=== PATIENT | female | born 1965 | race Caucasian/White ===

== ENCOUNTER 2017-03-17 10:31 | Outpatient (CLI) | payer OTHER | END 2017-03-17 10:32 | disposition home or self-care (01) | DX: M25.559 Pain in unspecified hip (principal) ==

== ENCOUNTER 2017-10-04 08:38 | Outpatient (CLI) | payer OTHER ==
[2017-10-04] MEDS ORDERED: BARIUM SULFATE 148 GM POWDER PO ONE (09:52)
[2017-10-04] MEDS ORDERED: BARIUM SULFATE 454 GM TUBE PO ONE (09:52)
--- NOTE | 2017-10-04 10:38 | XRAY Report ---
MODIFIED BARIUM SWALLOW: 10/04/2017 CLINICAL INDICATION: Dysphagia. FINDINGS: Various consistencies of barium were prepared and administered in conjunction with Speech Pathology. There was trace penetration with thin liquids, without trevor aspiration. Other consisten cies were unremarkable. Please also refer to full report from Speech Pathology. IMPRESSION: TRACE PENETRATION WITH THIN LIQUIDS. FLUOROSCOPY TIME: 1 minute, 27 seconds; 1 spot image obtained (cinefluoroscopy recorded). JOB #: [id number] EXT JOB #:[id number]
== END 2017-10-04 08:39 | disposition home or self-care (01) ==
LOC: DI 08:38
PROVIDERS: ATTEND Otolaryngology Otolaryngology/Facial Plastic Surgery
DX: R13.10 Dysphagia, unspecified (principal)
CPT/HCPCS: 74230

== ENCOUNTER 2017-12-19 12:00 | Outpatient (CLI) | payer OTHER ==
--- NOTE | 2017-12-19 14:45 | XRAY Report ---
DATE OF SERVICE: 12/19/2017 TWO VIEW CHEST: 12/19/2017 CLINICAL INDICATION: Wheeze, cough. COMPARISON: 12/24/2015. FINDINGS: Frontal and lateral views of the chest demonstrate a normal cardiac silhouette. The lungs are clear. No effusion or pneumothorax is present. IMPRESSION: NORMAL CHEST. TD: 12/19/2017 14:44
== END 2017-12-19 12:01 | disposition home or self-care (01) ==
LOC: DI 12:00
PROVIDERS: ATTEND Internal Medicine
DX: R06.2 Wheezing (principal); R05 Cough
CPT/HCPCS: 71046

== ENCOUNTER 2018-03-22 19:19 | Outpatient (CLI) | payer OTHER | END 2018-03-22 19:20 | disposition short-term general hospital (02) | LOC: EMS 19:19 | PROVIDERS: ATTEND Surgery | DX: R07.9 Chest pain, unspecified (principal) | CPT/HCPCS: A0170; A0425; A0427 ==

== ENCOUNTER 2018-03-30 09:08 | Outpatient (CLI) | payer OTHER ==
--- NOTE | 2018-03-30 12:45 | Ultrasound Report ---
PELVIC ULTRASOUND: 03/30/2018 CLINICAL INDICATION: Pelvic pain. TECHNIQUE: Transabdominal pelvic ultrasound performed for global evaluation. Transvaginal pelvic ultrasound performed for detailed evaluation. Real-time scanning performed and static images obtained. FINDINGS: The uterus is anteverted, measuring 9.2 x 4.4 x 3.4 cm. The endometrium measures 8 mm. No focal myometrial lesion is seen. Neither ovary was confidently identified on transabdominal or transvaginal imaging. No adnexal mass or free fluid is appreciated. IMPRESSION: NORMAL UTERUS. NONVISUALIZATION OF BOTH OVARIES, BUT NO EVIDENCE OF ADNEXAL MASS OR FREE FLUID. TD: 03/30/2018 12:22
== END 2018-03-30 09:09 | disposition home or self-care (01) ==
LOC: DI 09:08
PROVIDERS: ATTEND Internal Medicine
DX: N95.1 Menopausal and female climacteric states (principal); R10.2 Pelvic and perineal pain
CPT/HCPCS: 76830; 76856

== ENCOUNTER 2018-07-04 12:57 | Outpatient (CLI) | payer OTHER ==
[2018-07-04] MEDS ORDERED: GADOBUTROL 15 MMOL/15 ML VIAL ONE (13:04)
[2018-07-04] MEDS ORDERED: GADOBUTROL 15 MMOL/15 ML VIAL IVP ONE (14:14)
--- NOTE | 2018-07-04 15:46 | MRI Report ---
Procedure Date: 07/04/2018 Accession Number: [id number] / [id number] Procedure: MRI - Angio Brain W/O (MRA) CPT Code: FULL RESULT: EXAM MRA BRAIN EXAM DATE: 07/04/2018 01:38 PM. CLINICAL HISTORY: 52-year-old female, pituitary adenoma, subarachnoid cyst COMPARISON: None. TECHNIQUE: Multiplanar, multisequence MRA sequences of the brain were performed. Other: None. Post-processing: Multiplanar 3D MIP reconstructions. IV Contrast: None. FINDINGS: RIGHT Internal Carotid (ICA): No aneurysm, stenosis or anomaly. Middle Cerebral (MCA): No aneurysm, stenosis or anomaly. Anterior Cerebral (SHUN): No aneurysm, stenosis or anomaly. Posterior Cerebral (WARNING ANALYST): No aneurysm, stenosis or anomaly. Posterior Communicating (P-COM): Only faintly visualized, likely hypoplastic. Vertebral: No aneurysm, stenosis or anomaly in the visualized upper vertebral artery. LEFT Internal Carotid (ICA): No aneurysm, stenosis or anomaly. Middle Cerebral (MCA): No aneurysm, stenosis or anomaly. Anterior Cerebral (SHUN): No aneurysm, stenosis or anomaly. Posterior Cerebral (WARNING ANALYST): No aneurysm, stenosis or anomaly. Posterior Communicating (P-COM): Only faintly visualized, likely hypoplastic. Vertebral: No aneurysm, stenosis or anomaly in the visualized upper vertebral artery. MIDLINE Anterior Communicating (A-COM): No aneurysm, stenosis or anomaly. Basilar Artery:No aneurysm, stenosis or anomaly. Other: None. IMPRESSION: 1. Normal brain MRA. No stenoses, large vessel occlusions, aneurysms, or vascular malformations RADIA
--- NOTE | 2018-07-04 16:02 | MRI Report ---
Procedure Date: 07/04/2018 Accession Number: [id number] / [id number] Procedure: MRI - Brain W/WO CPT Code: FULL RESULT: EXAM: MRI BRAIN AND PITUITARY WITHOUT AND WITH CONTRAST. EXAM DATE: 07/04/2018 02:35 PM. CLINICAL HISTORY: 52-year-old female with history of pituitary adenoma and arachnoid cyst. COMPARISON: None. TECHNIQUE: Multiplanar, multisequence T1-weighted and fluid-sensitive MR sequences of the brain and pituitary were performed. Other: None. IV Contrast: 13.5 mL Gadavist. FINDINGS: Brain Volume: Normal for age. Parenchyma: No masses, infarcts, or hemorrhage. No white matter lesions identified. No abnormal enhancement. No parenchymal foci susceptibility artifact. Pituitary: 3.1 mm craniocaudally x 12 mm AP x 17 mm transversely. Normal. No masses, hemorrhage, or enlargement. The superior margin is concave. The pituitary stalk is normal in thickness. The adjacent parasellar structures are within normal limits. Ventricles/Cisterns: No hydrocephalus. There is a midline CSF intensity collection within the posterior fossa behind the vermis measuring 3.3 x 4.0 x 2.7 cm, favored to represent an arachnoid cyst. Orbits: Symmetric and unremarkable. IAC: Symmetric and unremarkable. Vasculature: Normal signal flow void is seen in the major arterial structures at the skull base. The dural sinuses are patent and enhance normally. Sinuses: No acute sinus disease. Bones: No focal pathologic appearing marrow signal changes. Other: None. IMPRESSION: 1. No MRI evidence of acute intracranial abnormality. Specifically, no evidence of acute or subacute infarct, acute intracranial hemorrhage, parenchymal mass, midline shift, or hydrocephalus. No abnormal enhancement. 2. There is a midline CSF intensity extra-axial collection within the posterior fossa behind the vermis measuring 3.3 x 4.0 x 2.7 cm, favored to represent an arachnoid cyst. 3. As detailed above, the pituitary gland appears unremarkable. No definite focal mass, hemorrhage, or differential enhancement to suggest a residual/recurrent mass RADIA
== END 2018-07-04 12:58 | disposition home or self-care (01) ==
LOC: DI 12:57
PROVIDERS: ATTEND Internal Medicine
DX: D35.2 Benign neoplasm of pituitary gland (principal); G93.0 Cerebral cysts
CPT/HCPCS: 70544; 70553; A9585

== ENCOUNTER 2018-10-12 15:37 | Outpatient (CLI) | payer OTHER ==
--- NOTE | 2018-10-13 08:10 | MRI Report ---
Reason: CERVICALGIA, LOW BACK PAIN, CEREBRAL CYST Procedure Date: 10/12/2018 Accession Number: [id number] / [id number] Procedure: MRI - Cervical Spine W/O CPT Code: FULL RESULT: EXAM: MRI CERVICAL SPINE WITHOUT CONTRAST EXAM DATE: 10/12/2018 03:59 PM. CLINICAL HISTORY: Cervicalgia, low back pain, cerebral cyst. COMPARISONS: None. TECHNIQUE: Multiplanar, multisequence T1-weighted and fluid-sensitive sequences of the cervical spine without contrast. Other: None. FINDINGS: Neurologic Structures: Retrocerebellar midline fluid space widening is present suggestive of an arachnoid cyst. No signal abnormality in the visualized spinal cord. Alignment: Cervical lordosis straightening. No focal subluxation. Minimal broad-based rightward convex asymmetric cervical curve, significance uncertain, potentially positional. Bone Marrow: Minimal degenerative endplate signal changes at C5-C6. Interspace Levels/Facets: C1-C2: Unremarkable. C2-C3: Unremarkable. C3-C4: Minimal to mild right and mild to moderate left-sided facet arthropathy. No disk herniation or central canal stenosis. Patent right foramen. Mild left foraminal stenosis is present from left side facet arthropathy and minimal uncinate process spurring. C4-C5: Unremarkable. C5-C6: Mild to moderate degenerative disk disease. Prominent asymmetric left of midline posterior disk herniation with osteophyte. Ventral thecal sac effacement anteriorly on the left with mild contouring of the ventral cord surface. The disk osteophyte complex creates moderately prominent left lateral recess stenosis and moderate to severe left foraminal stenosis into which it protrudes, correlate to a left C6 radiculopathy. Patent right foramen. The overall degree of central stenosis is mild. C6-C7: Minimal disk bulge. No significant disk space narrowing. No stenosis. C7-T1: Unremarkable. Musculature: Normal. No edema or fatty atrophy. Other: No acute edema or asymmetry. Mild diffuse fatty atrophy may be present. IMPRESSION: The most significant abnormality is a large left of midline disk herniation and osteophyte at C5-C6 associated with potentially significant stenosis of the left lateral recess and left neural foramen, correlate to a left C6 radiculopathy. Minimal mass-effect on the cord anteriorly on the left at C5-C6 but no cord signal abnormality. RADIA
--- NOTE | 2018-10-13 19:29 | MRI Report ---
Reason: CERVICALGIA, LOW BACK PAIN, CEREBRAL CYST Procedure Date: 10/12/2018 Accession Number: [id number] / [id number] Procedure: MRI - Lumbar Spine W/O CPT Code: FULL RESULT: EXAM: MRI LUMBAR SPINE WITHOUT CONTRAST EXAM DATE: 10/12/2018 05:12 PM. CLINICAL HISTORY: Cervicalgia, low back pain, cerebral cyst. COMPARISON: ABDOMEN/PELVIS W/O 06/05/2015 2:02 PM. TECHNIQUE: Multiplanar, multisequence T1-weighted and fluid-sensitive sequences of the lumbar spine from T12 to S1 without contrast. Other: None. FINDINGS: Spinal Canal: The conus terminates at T12. The conus medullaris and cauda equina are unremarkable. Alignment: No scoliosis or spondylolisthesis. Bone Marrow: Five [id number] lumbar vertebral bodies are assumed. No gross fractures or bone lesions. No bone marrow replacement. Disk Levels/Facets: T12-L1: Unremarkable. L1-L2: Unremarkable. L2-L3: Mild disk degeneration. Left lateral 3 mm disk protrusion osteophyte complex with moderate left foraminal stenosis. The right intervertebral foramen is negative for stenosis. L3-L4: Negative for spinal canal stenosis or foraminal stenosis. L4-L5: Mild facet joint arthrosis. Mild left foraminal stenosis from facet hypertrophy. Mild right foraminal stenosis from 2 mm foraminal disk protrusion. L5-S1: Severe left and moderate right facet joint arthrosis. Negative for spinal canal stenosis. Musculature: Low lumbar and sacral paraspinal muscle atrophy. Other: The partially visualized retroperitoneum is unremarkable. IMPRESSION: 1. Negative for spinal canal stenosis or focal disk herniation. 2. Moderate left L2-L3 foraminal stenosis from lateral 3 mm disk protrusion osteophyte complex which contacts the exiting left L2 nerve root. 3. There is severe left and moderate right L5-S1 facet joint arthrosis. Comment: The following findings are so common in adults without low back pain that while we report their presence, they must be interpreted with caution and in the context of the clinical situation. (Reference Shengk et al, Spine 2001) Prevalence of findings in patients without low back pain: Disk degeneration (any evidence): 92% Disk desiccation/T2 signal loss: 83% Disk height loss: 56% Disk bulge: 64% Disk protrusion: 32% Annular tear/high intensity zone: 38% RADIA
== END 2018-10-12 15:38 | disposition home or self-care (01) ==
LOC: DI 15:37
PROVIDERS: ATTEND Internal Medicine
DX: M51.26 Other intervertebral disc displacement, lumbar region (principal); M48.061 Spinal stenosis, lumbar region without neurogenic claudication; M47.817 Spondylosis without myelopathy or radiculopathy, lumbosacral region; M50.122 Cervical disc disorder at C5-C6 level with radiculopathy; M48.02 Spinal stenosis, cervical region; M25.78 Osteophyte, vertebrae
CPT/HCPCS: 72141; 72148

== ENCOUNTER 2020-08-26 10:54 | Emergency (ER) | payer MEDICAID ==
[2020-08-26 11:06] VITALS: BP 145/70
--- NOTE | 2020-08-26 11:56 | ED Physician Documentation ---
History of Present Illness - Stated complaint Stated Complaint: RT ANKLE INJ - Chief complaint Chief Complaint: Ext Problem - Additonal information Additional information: 54-year-old female presents to the emergency department with acute right ankle pain that began 4 days ago. She reports that she was walking and began to feel faint so she leaned forward. When she leaned forward she fell onto her abdomen but her right foot was trapped between her knee and the wall. She reports that she heard a pop and has had pain and swelling laterally since she has difficulty bearing weight on the forefoot but if she everts her foot she can walk nearly normally. She has been typically using a cane or crutch to get around. No history of previous injury. Review of Systems Constitutional: reports: Reviewed and negative Nose: reports: Reviewed and negative Throat: reports: Reviewed and negative Cardiac: denies: Chest pain / pressure, Palpitations, Pedal edema, Calf pain Respiratory: denies: Dyspnea, Cough, Hemoptysis, Wheezing GI: denies: Abdominal Pain, Abdominal Swelling, Nausea, Vomiting, Constipation : denies: Dysuria, Frequency Musculoskeletal: reports: Joint pain (right ankle swelling laterally) Neurologic: reports: Syncope. 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: Miscarriage(s) : None HEENT: None Psych: Depression Musculoskeletal: Chronic back pain - Past Surgical History Past Surgical History: Yes /ASSEMBLER TUBING: Tubal ligation Cardiovascular: Cardiac catheterization - Present Medications Home Medications: Ambulatory Orders Medication Instructions Recorded Confirmed Acetaminophen [Tylenol] 650 mg PO PRN 11/21/15 12/24/15 Albuterol Sulfate 2.5 mg IH PRN 11/21/15 12/24/15 Albuterol Sulfate [Proair Hfa] 8.5 gm IH PRN 11/21/15 12/24/15 Aspirin [P[place]kin Aspirin] 81 mg PO DAILY 11/21/15 12/24/15 Clopidogrel [Plavix] 75 mg PO DAILY 11/21/15 12/24/15 Escitalopram [Lexapro] 20 mg PO DAILY 11/21/15 12/24/15 Famotidine 20 mg PO DAILY 11/21/15 12/24/15 Nicotine 7 mg Patch [Nicoderm] 1 each TOP Q24H 11/21/15 12/24/15 carvediloL [Carvedilol] 3.125 mg PO BID 11/21/15 12/24/15 lisinopriL [Lisinopril] 5 mg PO DAILY 11/21/15 12/24/15 - Allergies Allergies/Adverse Reactions: Allergies Allergy/AdvReac Type Severity Reaction Status Date / Time codeine Allergy Itching Verified 08/26/20 11:07 fentanyl Allergy Itching Verified 08/26/20 11:07 hydrocodone bitartrate * AdvReac Itching Verified 08/26/20 11:07 [From Vicodin] yogurt Allergy Headache Uncoded 08/26/20 11:07 - Social History Does the pt smoke?: Yes Smoking Status: Current every day smoker Does the pt drink ETOH?: No Does the pt have substance abuse?: No - Immunizations Immunizations are current?: Yes - POLST Patient has POLST: No PD ED PE EXPANDED - General General: Alert, No acute distress, Other (obese) - Extremities Extremities: Right ankle (swelling, ecchymosis laterally. full ROM, bears only partial weight) Results - Vitals Vitals: Vital Signs - 24 hr 08/26/20 11:01 Temperature 37.1 C Heart Rate 91 Respiratory 17 Rate Blood Pressure 145/70 H O2 Saturation 96 Oxygen O2 Source Room air - EKG (time done) 1236 Rate: Rate (enter#) (89) Rhythm: NSR [place]: Normal Intervals: Normal [place] QRS: Normal Ischemia: Non specific changes (anterolateral flattening t waves) Compare to prior EKG: Unchanged from prior EKG Computer interpretation: Agree with computer - Labs Labs: Laboratory Tests 08/26/20 08/26/20 12:43 12:43 WBC 7.6 RBC 4.44 Hgb 14.1 Hct 42.4 MCV 95.5 MCH 31.8 H MCHC 33.3 RDW 15.0 Plt Count 232 MPV 9.1 Neut # (Auto) 4.6 Lymph # (Auto) 2.4 [place] # (Auto) 0.4 Eos # (Auto) 0.2 Baso # (Auto) 0.0 Absolute Nucleated RBC 0.00 Nucleated RBC % 0.0 Sodium 137 Potassium 4.1 Chloride 102 Carbon Dioxide 27 Anion Gap 8.0 BUN 13 Creatinine 0.9 Estimated GFR (MDRD) 66 L Glucose 96 Calcium 9.4 Total Bilirubin 0.6 AST 34 ALT 34 Alkaline Phosphatase 80 Total Protein 7.5 Albumin 4.0 Globulin 3.5 Albumin/Globulin Ratio 1.1 - Rads (name of study) right ankle Radiology: Final report received (Slightly comminuted and minimally displaced spiral fracture through distal fibular shaft. No distal location. Ankle mortise is congruent.) CXR Radiology: Final report received (No acute cardiopulmonary process) PD MEDICAL DECISION MAKING - ED course Complexity details: reviewed old records, reviewed results, re-evaluated patient, considered differential, d/w patient, d/w family ED course: 54-year-old female presents to the emergency department with 3 days of right ankle pain after a syncopal event at home. - X-ray reveals a spiral fracture of the right fibula. Patient was placed in a 3 sided short leg splint given crutches and recommended for follow-up - Patient reports that she syncopized Tuesday afternoon which is why she sustained the ankle injury. She denies chest pain or shortness of breath. EKG and chest x-ray do not show any acute findings. CBC and electrolytes also within normal limits. Patient denies calf leg pain or swelling. By Wells criteria she is low for PE.She feels that her syncopal event was related to the naltrexone which she recently started for fibromyalgia. I advised close follow- up with the primary care provider. Departure - Departure Clinical Impression: Syncope and collapse Fibula fracture Qualifiers: Encounter type: initial encounter Fibula location: shaft Fracture type: closed Fracture morphology: spiral Fracture alignment: displaced Laterality: right Qualified Code(s): S82.441A - Displaced spiral fracture of shaft of right fibula, initial encounter for closed fracture Condition: Stable Record reviewed to determine appropriate education?: Yes Instructions: ED Fainting Unkn Cause, ED Fx Lower Extr Ch Follow-Up: Felipe Carroll MD [Provider Admit Priv/Credential] - Within 1 week Comments: Crystal as we discussed the x-ray shows that you have a distal fibula fracture. We have placed you in a splint and you are to be non-weightbearing on the right leg until seen by orthopedics. This is likely the type of fracture that will not require surgery but will simply be allowed to heal with time and casting. Please call Dr. Carroll's office for follow-up tomorrow. Please discuss your fainting episode with your primary care doctor. Today your labs EKG and chest x-ray are all essentially unremarkable. If you develop chest pain, have shortness of breath or any further fainting episodes return to the emergency department
--- NOTE | 2020-08-26 12:19 | XRAY Report ---
PROCEDURE: Ankle 3 View RT INDICATIONS: fall. sprain fx fx laterally TECHNIQUE: 3 views of the ankle were acquired. COMPARISON: None. FINDINGS: Bones: Slightly comminuted oblique fracture through distal fibular shaft is seen with minimal lateral displacement at fracture site. No other fracture or dislocation is seen. Ankle mortise is normally a ligned. No suspicious bony lesions. Soft tissues: No tibiotalar joint effusion. Achilles tendon appears normal. Significant soft tissu e swelling around ankle joint is noted. IMPRESSION: Acute slightly comminuted and minimally displaced spiral fracture through distal fibular shaft. No dislocation. Ankle soft tissue swelling. Ankle mortise is congruent. Reviewed by: Germán Fenton MD on 08/26/2020 12:17 PM PDT Approved by: Germán Fenton MD on 08/26/2020 12:17 PM PDT Station ID: [id number]
[2020-08-26 12:48] LABS: BASOPHILS % (AUTO) 0.5 %; EOSINOPHILS # (AUTO) 0.2 10^3/uL (0.0-0.7); EOSINOPHILS % (AUTO) 3.1 %; HGB - HEMOGLOBIN 14.1 g/dL (12.0-16.0); LYMPHOCYTES # (AUTO) 2.4 10^3/uL (1.5-3.5); LYMPHOCYTES % (AUTO) 30.8 %; MEAN CORPUSCULAR HEMOGLOBIN 31.8 pg (27.0-31.0); MEAN CORPUSCULAR HGB CONC 33.3 g/dL (32.0-36.0); MEAN CORPUSCULAR VOLUME 95.5 fL (81.0-99.0); MEAN PLATELET VOLUME 9.1 fL (7.9-10.8); MONOCYTES # (AUTO) 0.4 10^3/uL (0.0-1.0); MONOCYTES % (AUTO) 5.6 %; NEUTROPHILS # (AUTO) 4.6 10^3/uL (1.5-6.6); NEUTROPHILS % (AUTO) 59.6 %; PLT - PLATELET COUNT 232 10^3/uL (130-450); RED BLOOD COUNT 4.44 10^6/uL (4.20-5.40); WHITE BLOOD COUNT 7.6 x10^3/uL (4.8-10.8)
--- NOTE | 2020-08-26 12:57 | XRAY Report ---
PROCEDURE: Chest 1 View X-Ray INDICATIONS: chest pain TECHNIQUE: One view of the chest was acquired. COMPARISON: 12/19/2017 FINDINGS: Surgical changes and devices: None. Lungs and pleura: No pleural effusions or pneumothorax. Lungs are clear. Mediastinum: Mediastinal contours appear normal. Heart size is normal. Bones and chest wall: No suspicious bony lesions. Overlying soft tissues appear unremarkable. IMPRESSION: Stable examination of the chest without acute cardiopulmonary abnormalities. Reviewed by: Sergo Bullard MD on 08/26/2020 12:56 PM PDT Approved by: Sergo Bullard MD on 08/26/2020 12:56 PM PDT Station ID: [id number]
[2020-08-26 13:01] LABS: ALBUMIN/GLOBULIN RATIO 1.1 (1.0-2.2); ALKALINE PHOSPHATASE 80 IU/L (42-121); ALT ALANINE AMINOTRANSFERASE 34 IU/L (10-60); AST ASPARTATE AMINOTRANSFERASE 34 IU/L (10-42); BILIRUBIN,TOTAL 0.6 mg/dL (0.2-1.0); BUN - BLOOD UREA NITROGEN 13 mg/dL (6-20); CALCIUM 9.4 mg/dL (8.5-10.3); CARBON DIOXIDE - CO2 27 mmol/L (21-32); CHLORIDE 102 mmol/L (101-111); CREATININE 0.9 mg/dL (0.4-1.0); GLUCOSE 96 mg/dL (70-100); SODIUM 137 mmol/L (135-145); TOTAL PROTEIN 7.5 g/dL (6.7-8.2)
== END 2020-08-26 14:02 | disposition home or self-care (01) ==
LOC: ED 10:54
DX: R55 Syncope and collapse (principal); S82.441A Displaced spiral fracture of shaft of right fibula, initial encounter for closed fracture; W18.39XA Other fall on same level, initial encounter; Y93.01 Activity, walking, marching and hiking; Y92.009 Unspecified place in unspecified non-institutional (private) residence as the place of occurrence of the external cause; F17.200 Nicotine dependence, unspecified, uncomplicated; Z79.02 Long term (current) use of antithrombotics/antiplatelets; Z79.82 Long term (current) use of aspirin
CPT/HCPCS: 36415; 71045; 80053; 83690; 85025; 93005; 99283; 99284

== ENCOUNTER 2020-08-29 14:43 | Outpatient (CLI) | payer MEDICAID ==
--- NOTE | 2020-08-29 14:48 | XRAY Report ---
PROCEDURE: Ankle 3 View RT INDICATIONS: R ANKLE PAIN TECHNIQUE: 3 views of the ankle were acquired. COMPARISON: 08/26/2020. FINDINGS: Bones: Unchanged alignment of distal fibular fracture. Ankle mortise is normally aligned. No suspic ious bony lesions. Plantar and posterior calcaneal spurring. Soft tissues: Circumferential soft tissue swelling. A possible 2 mm loose body projecting in the late ral tibiotalar joint space. IMPRESSION: Unchanged alignment of distal fibular fracture. Possible loose body or fracture fragment projects the lateral tibiotalar joint space Circumferential soft tissue swelling. Reviewed by: Imtiaz Lozano MD on 08/29/2020 2:46 PM PDT Approved by: Imtiaz Lozano MD on 08/29/2020 2:46 PM PDT Station ID: [id number]
== END 2020-08-29 23:59 | disposition home or self-care (01) ==
LOC: DI.WCP 14:43
PROVIDERS: ATTEND Orthopaedic Surgery
DX: S82.831D Other fracture of upper and lower end of right fibula, subsequent encounter for closed fracture with routine healing (principal)

== ENCOUNTER 2020-10-03 15:05 | Outpatient (CLI) | payer MEDICAID ==
--- NOTE | 2020-10-03 15:08 | XRAY Report ---
PROCEDURE: Ankle 3 View RT INDICATIONS: RT ANKLE FRACTURE TECHNIQUE: 3 views of the ankle were acquired. COMPARISON: 08/29/2020 FINDINGS: Bones: There is a spiral fracture of the distal fibula redemonstrated extending to the tibiofibular s yndesmosis. The fracture margins are more distinct likely reflecting bony remodeling. There is interv al bridging callus formation. No definite change in alignment. Ankle mortise is normally aligned. No suspicious bony lesions. Soft tissues: There is persistent but decreased periarticular soft tissue swelling. No tibiotalar leo int effusion. Achilles tendon appears normal. IMPRESSION: 1. Healing spiral fracture of the distal fibula with bony remodeling and bridging callus formation. Reviewed by: Tremayne Morales MD on 10/03/2020 3:07 PM [facility] Approved by: Tremayne Morales MD on 10/03/2020 3:07 PM [facility] Station ID: [id number]
== END 2020-10-03 23:59 | disposition home or self-care (01) ==
LOC: DI.N 15:05
PROVIDERS: ATTEND Orthopaedic Surgery
DX: S82.64XA Nondisplaced fracture of lateral malleolus of right fibula, initial encounter for closed fracture (principal)

== ENCOUNTER 2021-01-23 12:20 | Outpatient (CLI) | payer OTHER ==
--- NOTE | 2021-01-23 12:43 | XRAY Report ---
PROCEDURE: Chest 2 View X-Ray INDICATIONS: COUGH TECHNIQUE: 2 view(s) of the chest. COMPARISON: None. FINDINGS: Surgical changes and devices: None. Lungs and pleura: No pleural effusions or pneumothorax. While increased bronchovascular markings in bilateral hilar region are seen with mild bronchial wall thickening. No focal infiltrate. Mediastinum: Mediastinal contours are normal. Heart size is normal. Bones and chest wall: No suspicious bony abnormalities. Soft tissues appear unremarkable. IMPRESSION: Finding may represent mild reactive airway disease such as bronchitis or asthma. No focal infiltrate. No pleural effusion or pneumothorax. Reviewed by: Germán Fenton MD on 01/23/2021 12:42 PM PST Approved by: Germán Fenton MD on 01/23/2021 12:42 PM PST Station ID: [id number]
== END 2021-01-23 12:21 | disposition home or self-care (01) ==
LOC: DI.S 12:20
PROVIDERS: ATTEND Physician Assistant
DX: R05 Cough (principal)

== ENCOUNTER 2022-08-23 08:00 | Outpatient (CLI) | payer MEDICAID, OTHER | END 2022-08-23 23:59 | disposition home or self-care (01) | LOC: LAB.S 08:00 | PROVIDERS: ATTEND Physician Assistant | DX: R39.15 Urgency of urination (principal) | CPT/HCPCS: 87077; 87086; 87181 ==

== ENCOUNTER 2023-03-06 12:48 | Emergency (ER) | payer MEDICAID ==
--- NOTE | 2023-03-06 13:56 | ED Physician Documentation ---
History of Present Illness - Stated complaint Stated Complaint: RT SIDE KNEE,HIP,ANKLE PX - Chief complaint Chief Complaint: Ext Problem - History obtained from History obtained from: Patient, Family - History of Present Illness Pain level max: 8 Pain level now: 6 - Additonal information Additional information: 57-year-old female states for the past 1 month she has had right lower back pain that radiates down the right leg all the way down to her foot, occasionally has numbness and tingling. She states that sometimes she also feels like there is a shock in her right knee, this last for 1 to 2 seconds at a time. She takes Tylenol No. 4 chronically at home, but states that this is not controlling the pain adequately. No loss of bowel or bladder control. No falls. No trauma. No recent illnesses. Does not use any IV drugs. No fevers. No chills. 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 HEENT: None Psych: Depression, Anxiety Musculoskeletal: Osteoarthritis, Fibromyalgia, Chronic back pain Derm: None - Past Surgical History Past Surgical History: Yes /MEAT TEAM MEMBER: Tubal ligation Cardiovascular: Coronary stent, Cardiac catheterization - Present Medications Home Medications: Ambulatory Orders Medication Instructions Recorded Confirmed Acetaminophen [Tylenol] 650 mg PO Q4HR PRN 11/21/15 04/28/21 Albuterol Sulfate [Proair Hfa] 8.5 gm IH Q4H PRN 11/21/15 04/27/21 Aspirin [[place] Aspirin] 81 mg PO DAILY 11/21/15 04/27/21 Nicotine 7 mg Patch [Nicoderm] 1 each TOP Q24H 11/21/15 04/27/21 Acetaminophen/Cod 300/30 [Tylenol 1 each PO Q4-6H 04/27/21 04/27/21 #3] Amitriptyline HCl 200 mg PO DAILY 04/27/21 04/27/21 Benzonatate [Tessalon] 100 mg PO TID PRN 04/27/21 04/27/21 Cyclobenzaprine [Flexeril] 5 mg PO TID PRN 04/27/21 04/28/21 Isosorbide Mononitrate [Isosorbide 60 mg PO DAILY 04/27/21 04/27/21 Mononitrate ER] Levothyroxine [Synthroid] 50 mcg PO QDAC 04/27/21 04/27/21 Loratadine [Claritin] 10 mg PO DAILY 04/27/21 04/27/21 Metformin HCl [Fortamet] 1,000 mg PO BIDWM 04/27/21 04/27/21 Multivitamin 2 each PO DAILY 04/27/21 04/28/21 Nitroglycerin [Nitrostat] 0.4 mg SL Q5MIN PRN 04/27/21 04/27/21 Omeprazole 40 mg PO DAILY 04/27/21 04/28/21 Pantoprazole Sodium 20 mg PO BID 04/27/21 04/27/21 Lidocaine Patch 5% [Lidoderm Patch] 1 each TOP DAILY 04/28/21 04/28/21 Rosuvastatin Calcium [Crestor] 20 mg PO DAILY 04/28/21 04/28/21 Hydrocodone/Ibuprofen 1 - 2 tab PO Q6H PRN #14 tablet 03/06/23 [Hydrocodone-Ibuprofen 5-200 mg] methylPREDNISolone [Medrol] 4 mg PO DAILY #1 tab 03/06/23 - Allergies Allergies/Adverse Reactions: Allergies Allergy/AdvReac Type Severity Reaction Status Date / Time codeine Allergy Itching Verified 03/06/23 13:07 fentanyl Allergy Itching Verified 03/06/23 13:07 hydrocodone bitartrate * AdvReac Itching Verified 03/06/23 13:07 [From Vicodin] yogurt Allergy Headache Uncoded 03/06/23 13:07 - Social History Does the pt smoke?: Yes Smoking Status: Current every day smoker Does the pt drink ETOH?: No Does the pt have substance abuse?: No - Immunizations Immunizations are current?: Yes - POLST Patient has POLST: No PD ED PE NORMAL - Vitals Vital signs reviewed: Yes - General General: Alert and oriented X 3, No acute distress - HEENT HEENT: Moist mucous membranes - Neck Neck: Supple, no meningeal sign - Cardiac Cardiac: RRR - Respiratory Respiratory: No respiratory distress, Clear bilaterally - Abdomen Abdomen: Soft, Non tender, Non distended - Back Back: No CVA TTP, No spinal TTP, Other (Paraspinal tenderness to palpation around L5/S1. Reproduces her pain. No significant spasm.) - Derm Derm: Warm and dry, No rash - Extremities Extremities: No edema, No calf tenderness / cord, Other (Normal examination of the right hip, right knee and right ankle. Full range of motion of all joints without pain. ACL, MCL, PCL, LCL are intact. No joint effusion) - Neuro Neuro: Alert and oriented X 3, registered nurse float pool 2-12 intact, No motor deficit, No sensory deficit, Normal speech, Other (Normal bilateral lower extremity patellar and ankle jerk reflexes. Normal great toe extension bilaterally. no saddle anesthesia) - Psych Psych: Normal mood, Normal affect Results - Vitals Vitals: Vital Signs - 24 hr 03/06/23 03/06/23 13:03 15:20 Temperature 36.8 C Heart Rate 91 87 Respiratory 16 16 Rate Blood Pressure 149/86 H 144/66 H O2 Saturation 94 95 Oxygen O2 Source Room air - EKG (time done) 1314 EKG releavant findings:: EKG personally interpreted by author of this note. Relevant findings are: - Rads (name of study) Right knee x-ray Relevant Findings:: Final report received, See rad report PD Medical Decision Making - ED course Complexity details: reviewed results, re-evaluated patient, considered differential, d/w patient ED course: 57-year-old female with what appears to be right-sided sciatica. She states that she has had an MRI in the past that showed some disc bulges in the L5 area. no evidence of cauda equina. No epidural abscess. Ambulating well here. Given IM Toradol and PO dexamethasone here and prescribe Vicoprofen and Medrol Dosepak for home. She has a walker that she can use at home. No evidence of an emergency condition that would necessitate emergent MRI today. Patient counseled regarding signs and symptoms for which I believe and urgent re- evaluation would be necessary. Patient with good understanding of and agreement to plan and is comfortable going home at this time This document was made in part using voice recognition software. While efforts are made to proofread this document, sound alike and grammatical errors may occur. Departure - Departure Disposition: Home, Self Care Clinical Impression: Sciatica Qualifiers: Laterality: right Qualified Code(s): M54.31 - Sciatica, right side Knee pain Qualifiers: Chronicity: acute Laterality: right Qualified Code(s): M25.561 - Pain in right knee Condition: Good Instructions: ED Meniscal Injury Knee Poss, ED Sciatica Follow-Up: Lakesha Webster MD [Primary Care Provider] - Within 1 week Prescriptions: Hydrocodone/Ibuprofen [Hydrocodone-Ibuprofen 5-200 mg] 1 - 2 tab PO Q6H PRN #14 tablet PRN Reason: Pain >8 methylPREDNISolone [Medrol] 4 mg PO DAILY #1 tab Comments: Your prescriptions were sent to [facility] in [place]. Please follow-up with your doctor for further care. Your knee x-ray does not show any acute abnormalities today. Your doctor may want to perform a repeat MRI of your lumbar spine and knee, refer you to physical therapy or potentially refer you to a medical communication specialist. I am prescribing a short course of narcotic pain medication for you. These are potentially dangerous and addictive medications that should be used carefully. These medications may constipate you. Take an cjdk-qcl-feofxaz stool softener (docusate) twice daily with plenty of water while taking these medications. If you go 24 hours without a bowel movement, take tkyk-ayt-qpsinid miralax, per package instructions. Do not drink or drive while taking these medications. If you received narcotic or sedating medications while in the emergency department, do not drive for 24 hours. Store this medication in a safe, secure place and out of reach of children. It is a violation of federal law to give or sell this medication to another person or to use in a manner other than prescribed. The ED will not refill narcotic prescriptions, including prescriptions lost or stolen. To dispose of unwanted medications: 1. [facility] at [address] in [place] has a medication drop box. They accept prescription medications (in pill form) Tuesday through Tuesday 9:00 a.m. to 5:00 p.m. 2. [facility] accepts prescription medications (in pill form only) for disposal year round. Call for more information. 3. Contact the [facility] for the next [facility] sponsored prescription drug collection event. , [phone], or [phone]; Discharge Date/Time: 03/06/23 15:20
[2023-03-06] MEDS ORDERED: KETOROLAC 60 MG/2 ML VIAL IM STA (14:25)
[2023-03-06] MEDS ORDERED: DEXAMETHASONE 10 MG/ML VIAL PO STA (14:25)
[2023-03-06 15:20] VITALS: BP 144/66
--- NOTE | 2023-03-06 16:01 | XRAY Report ---
PROCEDURE: Knee 4 View RT INDICATIONS: R knee pain TECHNIQUE: 4 views of the right knee(s) were acquired. COMPARISON: None. FINDINGS: Bones: No fractures or dislocations. No suspicious bony lesions. Medial compartment joint space n arrowing with small marginal osteophyte Soft tissues: No knee joint effusion. No suspicious soft tissue calcifications or masses. IMPRESSION: Mild osteoarthritis. No fracture Reviewed by: Jimmy Segundo MD on 03/06/2023 3:00 PM AKDT Approved by: Jimmy Segundo MD on 03/06/2023 3:00 PM AKDT Station ID: [id number]
== END 2023-03-06 15:20 | disposition home or self-care (01) ==
LOC: ED 12:48
DX: M54.31 Sciatica, right side (principal); M25.561 Pain in right knee; E11.9 Type 2 diabetes mellitus without complications; Z79.84 Long term (current) use of oral hypoglycemic drugs; F17.200 Nicotine dependence, unspecified, uncomplicated
CPT/HCPCS: 96372; 99283

== ENCOUNTER 2023-03-30 07:07 | Outpatient (CLI) | payer OTHER, MEDICAID ==
[2023-03-30 14:24] LABS: BASOPHILS % (AUTO) 0.4 %; EOSINOPHILS # (AUTO) 0.4 10^3/uL (0.0-0.7); EOSINOPHILS % (AUTO) 5.2 %; HCT - HEMATOCRIT 44.8 % (37.0-47.0); HGB - HEMOGLOBIN 13.4 g/dL (12.0-16.0); LYMPHOCYTES # (AUTO) 2.6 10^3/uL (1.5-3.5); LYMPHOCYTES % (AUTO) 34.9 %; MEAN CORPUSCULAR HEMOGLOBIN 27.6 pg (27.0-31.0); MEAN CORPUSCULAR HGB CONC 29.9 g/dL (32.0-36.0); MEAN CORPUSCULAR VOLUME 92.2 fL (81.0-99.0); MEAN PLATELET VOLUME 9.8 fL (7.9-10.8); MONOCYTES # (AUTO) 0.5 10^3/uL (0.0-1.0); MONOCYTES % (AUTO) 6.1 %; NEUTROPHILS % (AUTO) 53.1 %; PLT - PLATELET COUNT 254 10^3/uL (130-450); RED BLOOD COUNT 4.86 10^6/uL (4.20-5.40); RED CELL DISTRIBUTION WIDTH 16.7 % (12.0-15.0); WHITE BLOOD COUNT 7.6 x10^3/uL (4.8-10.8)
[2023-03-30 15:33] LABS: ALBUMIN 3.5 g/dL (3.2-5.5); ALBUMIN/GLOBULIN RATIO 0.9 (1.0-2.2); ALKALINE PHOSPHATASE 122 IU/L (42-121); ALT ALANINE AMINOTRANSFERASE 39 IU/L (10-60); AST ASPARTATE AMINOTRANSFERASE 65 IU/L (10-42); BILIRUBIN,TOTAL 0.4 mg/dL (0.2-1.0); BUN - BLOOD UREA NITROGEN 14 mg/dL (6-20); CALCIUM 9.3 mg/dL (8.5-10.3); CARBON DIOXIDE - CO2 28 mmol/L (21-32); CHLORIDE 104 mmol/L (101-111); CHOLESTEROL 166 mg/dL; CREATININE 0.9 mg/dL (0.4-1.0); GFR - MDRD 65 (>89); GLUCOSE 128 mg/dL (70-100); HDL CHOLESTEROL 33 mg/dL; LDL CHOLESTEROL,CALCULATED 92 mg/dL; LDL/HDL RATIO 2.8 (<4.4); POTASSIUM 4.3 mmol/L (3.5-5.0); SODIUM 138 mmol/L (135-145); TOTAL PROTEIN 7.2 g/dL (6.7-8.2); TRIGLYCERIDES 206 mg/dL; VLDL CHOLESTEROL 41 mg/dL
[2023-03-30 15:36] LABS: THYROID STIMULATING HORMONE 3.73 uIU/mL (0.34-5.60)
[2023-03-30 18:24] LABS: ESTIMATED AVERAGE GLUCOSE 160 mg/dL (70-100); HEMOGLOBIN A1c% 7.2 % (4.27-6.07)
== END 2023-03-30 07:08 | disposition home or self-care (01) ==
LOC: LAB.S 07:07
PROVIDERS: ATTEND Internal Medicine
DX: E11.8 Type 2 diabetes mellitus with unspecified complications (principal); E78.5 Hyperlipidemia, unspecified; E03.9 Hypothyroidism, unspecified; R53.83 Other fatigue
CPT/HCPCS: 36415; 80053; 80061; 83036; 83721; 84443; 85025

== ENCOUNTER 2023-06-29 07:30 | Outpatient (CLI) | payer OTHER, MEDICAID ==
--- NOTE | 2023-06-30 12:24 | Mammography Report ---
BILATERAL DIGITAL DIAGNOSTIC MAMMOGRAM 3D/2D WITH EXAGGERATED CC SPOT COMPRESSION: 06/29/2023 CLINICAL: Palpable left breast lumps. Due for bilateral exam. Comparison is made to exams dated: 08/14/2013 mammogram and 12/11/2008 mammogram - [facility]. There are scattered areas of fibroglandular density in both breasts (category b / 25%-50% glandular t issue). There is a new 2.5 cm irregular high density mass with a spiculated margin and fine calcifications in the left breast at 2 o'clock posterior depth. This is seen in additional views. This correlates to the area of reported pain. There is architectural distortion associated with the mass. No other significant masses, calcifications, or other findings are seen in either breast. Specifical ly, no finding to correspond to the patient's other palpable abnormalities. Right breast mammogram is stable. IMPRESSION: INCOMPLETE: NEEDS ADDITIONAL IMAGING EVALUATION The new 2.5 cm irregular high density mass in the left breast is indeterminate. An ultrasound is rec ommended. This was performed immediately following this exam. There are no abnormalities seen in the left breast to correspond with the palpable nodularities at 7, 9, and 10 o'clock. Ultrasound is recommended for full evaluation of these areas. This was performed immediately following this exam. Based on the Tyrer Cuzick model (a risk assessment model) the patients lifetime risk is 7.4% and her 10 year risk is 2.2%. According to the ACR, ACS, and NCCN guidelines, an annual breast MRI exam leno g with mammogram is recommended if the patients lifetime risk is 20% or greater. This exam was interpreted at Station ID: [id number]. NOTE: For mammograms, a report in lay terms will be sent to the patient. Approximately 15% of breast malignancies will not be visualized mammographically. In the management of a palpable breast mass, a negative mammogram must not discourage biopsy of a clinically suspicious lesion. Electronically Signed By: Manuela flor/:06/29/2023 09:16:22 ACR BI-RADS Category 0: Incomplete 3340F PARENCHYMAL PATTERN: (A) - The breast(s) demonstrate(s) scattered fibroglandular densities. BI-RADS CATEGORY: (0) - 0 Ultrasound [id number] Immediate follow-up LATERALITY: (B)
--- NOTE | 2023-06-30 12:25 | Ultrasound Report ---
LIMITED ULTRASOUND OF LEFT BREAST AND AXILLA: 06/29/2023 CLINICAL: Patient returns today to evaluate an asymmetry in the left breast. Comparison is made to exams dated: 06/29/2023 mammogram, 08/14/2013 mammogram, [facility] Color flow and real-time ultrasound of the left breast 2-3 o'clock, 10-12 o'clock, and axilla region s were performed. Chandler scale images of the real-time examination were reviewed. There is a 1.2 cm x 1.4 cm x 1.8 cm taller than wide irregular mass with a microlobulated, angular, a nd spiculated margin in the left breast at 2 o'clock posterior depth 15 cm from the nipple. This irr egular mass is hypoechoic with an echogenic boundary. This correlates with mammography findings. Co geraldo flow imaging demonstrates that there is vascularity present. There also is a benign 3 mm round cyst in the left breast at 11 o'clock posterior depth. This correl ates as palpated. Color flow imaging demonstrates that there is vascularity present. There are no abnormalities seen in the left breast to correspond with the palpable nodularities at 9, 11, and 12 o'clock which is consistent with fibrocystic tissue. No significant abnormalities were seen sonographically in the left axilla. IMPRESSION: HIGHLY SUGGESTIVE OF MALIGNANCY The 1.2 cm x 1.4 cm x 1.8 cm taller than wide irregular mass in the left breast at 2 o'clock posterio r depth is highly suggestive of malignancy. An ultrasound guided biopsy is recommended. The 3 mm round cyst in the left breast at 11 o'clock posterior depth is consistent with a simple cyst and is benign. There are no abnormalities seen in the left breast to correspond with the palpable nodularities at 9, 11, and 12 o'clock which is consistent with fibrocystic change. The patient sustained a fall immediately following the exam before results and recommendations could be conveyed. These will be discussed with the patient as soon as clinically appropriate. This exam was interpreted at Station ID: [id number]. Electronically Signed By: Manuela flor/:06/29/2023 11:21:53 Ultrasound BI-RADS: 5 Highly suggestive of malignancy BI-RADS CATEGORY: (5) - 5 Biopsy [id number] Immediate follow-up LATERALITY: (L)
== END 2023-06-29 07:31 | disposition home or self-care (01) ==
LOC: DI 07:30
PROVIDERS: ATTEND Internal Medicine
DX: N63.21 Unspecified lump in the left breast, upper outer quadrant (principal); N63.22 Unspecified lump in the left breast, upper inner quadrant; N63.25 Unspecified lump in the left breast, overlapping quadrants; Z91.81 History of falling

== ENCOUNTER 2023-06-29 10:45 | Emergency (ER) | payer MEDICAID, OTHER ==
[2023-06-29 11:00] VITALS: BP 142/96; O2SAT 98
--- NOTE | 2023-06-29 11:34 | XRAY Report ---
PROCEDURE: Tib/Fib RT INDICATIONS: R leg pain s/p fall TECHNIQUE: 2 views of the tibia and fibula were acquired. COMPARISON: None. FINDINGS: Bones: No fractures or dislocations. No suspicious bony lesions. Soft tissues: No suspicious soft tissue calcifications or masses. IMPRESSION: No acute bony abnormality. Reviewed by: Ascencion Yao MD on 06/29/2023 11:33 AM PDT Approved by: Ascencion Yao MD on 06/29/2023 11:33 AM PDT Station ID: [id number]
--- NOTE | 2023-06-29 12:04 | ED Physician Documentation ---
History of Present Illness - Stated complaint Stated Complaint: GLF - Chief complaint Chief Complaint: Trauma Ch/Bk - History obtained from History obtained from: Patient - History of Present Illness Timing: Today Pain level max: 2 Pain level now: 1 - Additonal information Additional information: 57-year-old female presents to the emergency department stating that she was in ultrasound today when she got up and tripped over her own feet landing on the right leg. She states that she has mild pain in the right lower leg, she has a prior fibula fracture in the past. No knee pain, hip pain, back pain, neck or head pain. No loss of consciousness. She states that she did hit her head on the padded seat of her walker. She is not on blood thinners. No altered mental status. No headache. Patient states that she was able to stand and walk after the event. 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(s) : None HEENT: None Psych: Depression, Anxiety Musculoskeletal: Osteoarthritis, Fibromyalgia, Chronic back pain Derm: None - Past Surgical History Past Surgical History: Yes /DEMO SPECIALIST: Tubal ligation Cardiovascular: Coronary stent, Cardiac catheterization - Present Medications Home Medications: Ambulatory Orders Medication Instructions Recorded Confirmed Acetaminophen [Tylenol] 650 mg PO Q4HR PRN 11/21/15 04/28/21 Albuterol Sulfate [Proair Hfa] 8.5 gm IH Q4H PRN 11/21/15 04/27/21 Aspirin [[place] Aspirin] 81 mg PO DAILY 11/21/15 04/27/21 Nicotine 7 mg Patch [Nicoderm] 1 each TOP Q24H 11/21/15 04/27/21 Acetaminophen/Cod 300/30 [Tylenol 1 each PO Q4-6H 04/27/21 04/27/21 #3] Amitriptyline HCl 200 mg PO DAILY 04/27/21 04/27/21 Benzonatate [Tessalon] 100 mg PO TID PRN 04/27/21 04/27/21 Cyclobenzaprine [Flexeril] 5 mg PO TID PRN 04/27/21 04/28/21 Isosorbide Mononitrate [Isosorbide 60 mg PO DAILY 04/27/21 04/27/21 Mononitrate ER] Levothyroxine [Synthroid] 50 mcg PO QDAC 04/27/21 04/27/21 Loratadine [Claritin] 10 mg PO DAILY 04/27/21 04/27/21 Metformin HCl [Fortamet] 1,000 mg PO BIDWM 04/27/21 04/27/21 Multivitamin 2 each PO DAILY 04/27/21 04/28/21 Nitroglycerin [Nitrostat] 0.4 mg SL Q5MIN PRN 04/27/21 04/27/21 Omeprazole 40 mg PO DAILY 04/27/21 04/28/21 Pantoprazole Sodium 20 mg PO BID 04/27/21 04/27/21 Lidocaine Patch 5% [Lidoderm Patch] 1 each TOP DAILY 04/28/21 04/28/21 Rosuvastatin Calcium [Crestor] 20 mg PO DAILY 04/28/21 04/28/21 Hydrocodone/Ibuprofen 1 - 2 tab PO Q6H PRN #14 tablet 03/06/23 [Hydrocodone-Ibuprofen 5-200 mg] methylPREDNISolone [Medrol] 4 mg PO DAILY #1 tab 03/06/23 - Allergies Allergies/Adverse Reactions: Allergies Allergy/AdvReac Type Severity Reaction Status Date / Time codeine Allergy Itching Verified 06/29/23 10:51 fentanyl Allergy Itching Verified 06/29/23 10:51 hydrocodone bitartrate * AdvReac Itching Verified 06/29/23 10:51 [From Vicodin] yogurt Allergy Headache Uncoded 06/29/23 10:51 - Social History Does the pt smoke?: Yes Smoking Status: Current every day smoker Does the pt drink ETOH?: No Does the pt have substance abuse?: No - Immunizations Immunizations are current?: Yes - POLST Patient has POLST: No PD ED PE NORMAL - Vitals Vital signs reviewed: Yes - General General: Alert and oriented X 3, No acute distress, Well developed/nourished - HEENT HEENT: Atraumatic, PERRL, Moist mucous membranes - Neck Neck: Supple, no meningeal sign, No bony TTP - Cardiac Cardiac: RRR, Strong equal pulses - Respiratory Respiratory: No respiratory distress, Clear bilaterally - Abdomen Abdomen: Soft, Non tender, Non distended - Back Back: No spinal TTP - Derm Derm: Warm and dry - Extremities Extremities: Other (No deformity noted. Full range of motion of the hip, knee and ankle without pain. Has mild pain on the distal fibula. Neurovascular intact. Otherwise normal examination of the right lower extremity. Has a small abrasion below the knee.) - Neuro Neuro: Alert and oriented X 3 - Psych Psych: Normal mood, Normal affect Results - Vitals Vitals: Vital Signs - 24 hr 06/29/23 10:48 Temperature 36.8 C Heart Rate 86 Respiratory 16 Rate Blood Pressure 142/96 H O2 Saturation 98 Oxygen O2 Source Room air - Rads (name of study) Right tib-fib x-ray Relevant Findings:: Final report received, See rad report PD Medical Decision Making - ED course Complexity details: reviewed results, re-evaluated patient, considered differential, d/w patient, d/w family ED course: No acute findings on x-ray. Abrasion was cleansed and bandaged. Ambulating well. Tdap up-to-date. No other apparent injuries from the fall. States no pain currently. We will have her follow-up with her doctor for further care. Patient counseled regarding signs and symptoms for which I believe and urgent re-evaluation would be necessary. Patient with good understanding of and agreement to plan and is comfortable going home at this time This document was made in part using voice recognition software. While efforts are made to proofread this document, sound alike and grammatical errors may occur. Departure - Departure Disposition: 01 Home, Self Care Clinical Impression: Leg pain, right Fall Qualifiers: Encounter type: initial encounter Qualified Code(s): W19.XXXA - Unspecified fall, initial encounter Condition: Good Instructions: ED Mechanical Fall Follow-Up: Lakesha Webster MD [Primary Care Provider] - Within 1 week Comments: Please follow-up with your doctor for further care. Please return if you worsen. Your x-ray does not show any acute abnormalities today. Forms: PCP List Discharge Date/Time: 06/29/23 12:23
== END 2023-06-29 12:23 | disposition home or self-care (01) ==
LOC: ED 10:45
DX: M79.604 Pain in right leg (principal); W01.0XXA Fall on same level from slipping, tripping and stumbling without subsequent striking against object, initial encounter; E11.9 Type 2 diabetes mellitus without complications; F17.200 Nicotine dependence, unspecified, uncomplicated
CPT/HCPCS: 99283

== ENCOUNTER 2023-07-27 09:06 | Outpatient (CLI) | payer OTHER ==
--- NOTE | 2023-07-27 09:57 | Sleep Patient Instructions ---
Sleep Center Visit Summary - Patient Visit Information Reason for Visit: Initial consult for evaluation of sleep disordered breathing and other sleep issues. - Patient Instructions Instructions Attached: Sleep Study, Sleep Clinic Visit, Sleep Study Home Monitor Additional Instructions: You will be completing a sleep study, either an in-lab polysomnography (PSG) or home sleep study (HST). You will follow-up in the sleep care office after the sleep study is completed to hear the results and talk about therapy, if needed. You will be called by our office staff to schedule this appointment, but you may contact us with any questions. - Clinic Information Contact: [facility] [address] [place] [address] [email or web address] T: [phone]
--- NOTE | 2023-07-27 10:04 | SLEEP CARE CONSULTATION ---
Information from patient questionnaire entered by Tereza Fraser. I have reviewed and concur with the information entered by Tereza Fraser. This document represents the service I personally performed and the decisions made by me, Alyssa Hutchins ARNP. History of Present Illness Service Date and Time: 07/27/2023 0906 Reason for Visit: New patient Accompanied by: Spouse (Royal) Chief Complaint: reports: Insomnia, Snoring, Excessive daytime sleepiness, Fatigue, Frequent awakenings at night Date of Onset: 3-4 years Usual bedtime: 8:30-10:30 PM Time it takes to fall asleep: 30 mins to 2 hours Snores at night: Yes Observed to quit breathing while asleep: No Sleeps alone due to snoring: No Number of times waking at night: 2-4 times Reasons for waking at night: reports: Choking, Gasping for air, Pain, Bathroom Toss, Turn, or Twitch while sleeping: No Recalls having dreams: Yes Usually gets out of bed at: wakes up betw [id number] but does not get out of bed Feels refreshed in the morning: No Morning headache: Yes (2 times a week; 2-3 hours to resolve) Sleepy or fatigued during the day: Yes Ever fallen asleep while driving: No (does not drive) Takes day naps: Yes (daily, 30 mins to 3 hours) Dreams during day naps: Yes Prior sleep studies: No Additional HPI information: I had the pleasure of seeing BONG GRAHAM today regarding the possibility of her having a sleep disorder. Her current complaints are daytime sleepiness, fatigue, frequent night awakenings, insomnia and snoring. She states she has trouble with insomnia and her provider sent for evaluation. She states she wakes up a lot and does not feel like she rests well. She states she has trouble falling asleep due to "nervous thinking" and chronic pain. She has woken up choking and gasping for air but this has not occurred in the last 2 months. Her states that she snores but can still sleep in same bed. He has not seen her stop breathing but states he falls asleep before she does. She states she has difficulty swallowing thin liquids. She states that she needs a walker to get around but is able to get to and from the bathroom without assistance. - Parasomnia Symptoms Ever been unable to move upon waking from sleep: No Walks in sleep: No Talks in sleep: Yes Ever acted out dreams in sleep: No Ever felt weak in the knees when startled or emotional: Yes (has not fallen to ground; happens more when frightened) Bothered by creepy, crawly, restless sensations in legs: Yes (daily; on topiramate for RLS) Problems with memory or concentration: Yes (both, memory is worse) Subjective Initial [place] Sleepiness Scale score: 17 (07/27/2023) Past Medical History Past Medical History: reports: Claustrophobia, Diabetes, Coronary Heart Disease (has had CA, 2 stents placed), Hypothyroidism, Fibromyalgia, Anxiety, Asthma (COPD), Depression, Mood disorder, GERD Social History The patient's occupation is a [employer]. Patient is and lives in [place]. Have you smoked in the past 12 months: Yes Cigarettes per day (20/pack): 20 Years of smokin Smoking Pack Years: 40.0 Alcohol use: No Caffeine use: Yes Caffeine amount and frequency: 3 drinks a day Family History Family history of sleep disordered breathing: No Allergies and Home Medications Known drug allergies: Yes (pt states just adverse reactions not allergy) Drug allergies reviewed: Yes Home medication list reviewed: Yes Allergy and home medication list: Allergies codeine Allergy (Verified 07/26/23 11:59) Itching fentanyl Allergy (Verified 07/26/23 11:59) Itching hydrocodone bitartrate * [From Vicodin] Adverse Reaction (Verified 07/26/23 11:59) Itching yogurt Allergy (Uncoded 07/26/23 11:59) Headache Home Medications Medication Instructions Recorded Confirmed Last Taken Type Acetaminophen [Tylenol] 650 mg PO Q4HR PRN 11/21/15 04/28/21 11/21/15 01:00 History Albuterol Sulfate [Proair Hfa] 8.5 gm IH Q4H PRN 11/21/15 04/27/21 Unknown History Aspirin [Mono Aspirin] 81 mg PO DAILY 11/21/15 04/27/21 11/21/15 02:30 History Amitriptyline HCl 200 mg PO DAILY 04/27/21 04/27/21 Unknown History Isosorbide Mononitrate [Isosorbide 60 mg PO DAILY 04/27/21 04/27/21 Unknown History Mononitrate ER] Levothyroxine [Synthroid] 100 mcg PO QDAC 04/27/21 04/27/21 Unknown History Loratadine [Claritin] 10 mg PO DAILY 04/27/21 04/27/21 Unknown History Nitroglycerin [Nitrostat] 0.4 mg SL Q5MIN PRN 04/27/21 04/27/21 Unknown History Omeprazole 40 mg PO DAILY 04/27/21 04/28/21 Unknown History Pantoprazole Sodium 20 mg PO BID 04/27/21 04/27/21 Unknown History Rosuvastatin Calcium [Crestor] 20 mg PO DAILY 04/28/21 04/28/21 Unknown History Meloxicam 7.5 mg ORAL 07/27/23 Unknown History Ozempic SUBQ 07/27/23 Unknown History Review of Systems Weight gain over past 5 years: 100, up now by 10 lbs Weight loss over past 5 years: 75 Cardiovascular: reports: high blood pressure, chest pain, leg or foot swelling Respiratory: reports: shortness of breath, wheeze, sputum production, chronic cough, other (COPD) Gastrointestinal: reports: heartburn, difficulty swallowing, nausea, vomitting, diarrhea, abdominal pain Urinary: reports: incontinence, urgency Neurological: reports: gait or balance problems Psychiatric: reports: anxiety, depression, mood disorder, claustrophobia Ear/Nose/Throat: reports: nasal congestion, sinus problems, dry mouth/throat, hoarseness, wisdom teeth removed Endocrine: reports: thyroid disease, sluggishness, too hot or cold, excessive thirst, increased urination Musculoskeletal: reports: joint pain, neck pain, back pain, mobility problems Immunologic: reports: sneezing Physical Exam Vital signs obtained and entered by: Alyssa Moore NP Blood Pressure: 112/68 Cuff size: wrist (right) Heart Rate: 91 O2 Saturation: 95 Height: 5 ft 7 in Weight: 342 lb 12.8 oz Body Mass Index: 53.6 BMI Classification: Morbidly Obese Neck circumference: 18 (inches) Soft palate: normal Hard palate: normal Uvula: normal Uvula visualization: 25% Mallampati Class III Tongue: enlarged in size with teeth lemus on lateral edges Tonsils: small Neck: normal w/o lymphadenopathy or thyromegaly Heart: regular rate and rhythm Lungs: clear bilaterally Impression and Plan 1. Suspected Obstructive Sleep Apnea-Hypopnea Syndrome, as suggested by a history of loud and irregular snoring, gasping or choking in sleep, morning headache, frequent awakening during the night, unrefreshed sleep, cognitive impairment, and excessive daytime sleepiness. Narrow oropharynx and obesity are common predisposing factors for obstructive sleep apnea-hypopnea syndrome. I recommend proceeding to polysomnography to confirm the diagnosis and to assess severity. If the patient has significant sleep disordered breathing, a manual CPAP titration study will also be performed to find the optimal treatment pressure. I informed the patient of what the sleep studies involve and after some discussion, obtained agreement to proceed. The pathophysiology of obstructive sleep apnea-hypopnea syndrome was discussed with the patient and health risks of cardiovascular and cerebrovascular disease if not treated. Risks of drowsy driving discussed in detail and patient advised to avoid long distance driving and to pullman clerk at the first sign of drowsiness. Patient agreed to plan. * Schedule polysomnography +- manual CPAP titration study and return in 1-2 weeks after the study to discuss result and initiate therapy. * Avoid long distance driving or driving when feeling sleepy. * Avoid alcohol, sedative and muscle relaxant around bedtime. * Attempt to lose weight. * Review instructions provided by trained office staff on how to prepare for the sleep study. * Return for follow-up after sleep study completed. Counseling Topics: Weight loss health impact Visit Type: In Office Time Spent with Patient (minutes): 44 Provider Statement: I spent 100% of the Face to Face Visit with the patient with greater than 50% spent counseling the patient and coordination of care.
[2023-07-27 10:14] VITALS: BP 112/68; O2SAT 95
== END 2023-07-27 09:07 | disposition home or self-care (01) ==
LOC: SC 09:06
PROVIDERS: ATTEND Nurse Practitioner Family
DX: G47.10 Hypersomnia, unspecified (principal); R53.83 Other fatigue; G47.8 Other sleep disorders; R51.9 Headache, unspecified; R06.83 Snoring; I10 Essential (primary) hypertension; F32.A Depression, unspecified; I25.10 Atherosclerotic heart disease of native coronary artery without angina pectoris; I25.2 Old myocardial infarction; E66.01 Morbid (severe) obesity due to excess calories; Z68.43 Body mass index [BMI] 50.0-59.9, adult; F17.200 Nicotine dependence, unspecified, uncomplicated
CPT/HCPCS: 99203; 99212

== ENCOUNTER 2023-07-28 09:38 | Outpatient (CLI) | payer OTHER ==
[~2023-07-28 09:38] MED LIST: LIDOCAINE-MPF 1% 5 ML VIAL ONE
--- NOTE | 2023-08-01 15:55 | Mammography Report ---
UNILATERAL LEFT DIGITAL DIAGNOSTIC MAMMOGRAM POST-PROCEDURE IMAGING FOR MARKER PLACEMENT: 07/28/2023 CLINICAL: Post left breast ultrasound biopsy clip placement imaging. Comparison is made to exam dated: 06/29/2023 mammogram - [facility]. There are scattered areas of fibroglandular density in the left breast (category b / 25%-50% glandula r tissue). There is a marker clip in the appropriate position in the left breast posterior depth lateral region seen on the craniocaudal view only. This marker clip placement is at the biopsy site. IMPRESSION: POST PROCEDURE MAMMOGRAM FOR MARKER PLACEMENT There was a successful marker clip placement in the left breast posterior depth lateral region seen o n the craniocaudal view only. This exam was interpreted at Station ID: Unknown. NOTE: For mammograms, a report in lay terms will be sent to the patient. Approximately 15% of breast malignancies will not be visualized mammographically. In the management of a palpable breast mass, a negative mammogram must not discourage biopsy of a clinically suspicious lesion. Electronically Signed By: Melinda aponte/homero:07/31/2023 10:32:57 ACR BI-RADS Category Post-procedure mammogram for marker placement PARENCHYMAL PATTERN: (A) - The breast(s) demonstrate(s) scattered fibroglandular densities. BI-RADS CATEGORY: () - Unspecified - other recall n/a LATERALITY: (B)
--- NOTE | 2023-08-01 15:56 | Ultrasound Report ---
ULTRASOUND GUIDED BIOPSY LEFT BREAST USING VACUUM DEVICE WITH MARKING DEVICE INSERTED AND POST MAMMOG RAPHIC IMAGIN07/28/2023 CLINICAL: Left breast mass. PATIENT CONSENT: Risks (minor bleeding, infection, vasovagal reaction and repeat procedure), benefits and alternatives were explained to the patient and written informed consent was obtained. Correlation is made to exams dated: 07/28/2023 mammogram, 06/29/2023 ultrasound, 06/29/2023 mammogram, 08/14/2013 mammogram, and 12/11/2008 mammogram - [facility]. An ultrasound guided biopsy using real-time ultrasound was performed for the irregular shaped solid m ass located in the left breast at 2 o'clock middle depth. This was described on the previous mammogr aphy and ultrasound reports. The skin was prepped in the usual manner. Local anesthetic was adminis tered to the access site. A skin marybel was made in the breast. The abnormality was approached from t he lateral aspect. A biopsy needle was placed adjacent to the abnormality under ultrasound guidance. Once the needle was documented to be in the correct location, a specimen was obtained using the [employer] biopsy system. A titanium clip was inserted into the biopsy cavity. A sterile dressing was a pplied to the access site. Post procedure mammographic imaging was obtained. The specimen was sent to the laboratory for pathological analysis. IMPRESSION: ULTRASOUND GUIDED BIOPSY MALIGNANT Ultrasound guided biopsy of the solid mass in the left breast at 2 o'clock middle depth was successfu l. Pathology indicates malignant invasive ductal carcinoma (ID). Pathology results are concordant w ith imaging findings. A surgical/oncologic consultation is recommended. Results and recommendations will be communicated to the ordering provider's office. This exam was interpreted at Station ID: [id number]. Melinda Geiger M.D. [facility],krg/:08/01/2023 15:52:13 BI-RADS CATEGORY: () - Unspecified - other recall n/a LATERALITY: (B)
== END 2023-07-28 09:39 | disposition home or self-care (01) ==
LOC: DI 09:38
PROVIDERS: ATTEND Internal Medicine
DX: C50.412 Malignant neoplasm of upper-outer quadrant of left female breast (principal); Z17.0 Estrogen receptor positive status [ER+]
CPT/HCPCS: 19083

== ENCOUNTER 2023-07-29 08:00 | Outpatient (CLI) | payer OTHER | END 2023-07-29 23:59 | disposition home or self-care (01) | LOC: LAB.S 08:00 | PROVIDERS: ATTEND Physician Assistant | DX: R30.0 Dysuria (principal) | CPT/HCPCS: 87086; 87181 ==

== ENCOUNTER 2023-10-07 08:00 | Outpatient (CLI) | payer OTHER | END 2023-10-07 23:59 | disposition home or self-care (01) | LOC: LAB.WC 08:00 | PROVIDERS: ATTEND Obstetrics & Gynecology | DX: R32 Unspecified urinary incontinence (principal) | CPT/HCPCS: 87086; 87181 ==

== ENCOUNTER 2023-10-28 08:00 | Outpatient (CLI) | payer OTHER ==
[2023-10-28 17:05] LABS: BILIRUBIN,URINE NEGATIVE (NEGATIVE); GLUCOSE, URINE (UA) NEGATIVE (NEGATIVE); KETONES,URINE (UA) NEGATIVE (NEGATIVE); LEUKOCYTE ESTERASE, URINE SMALL (NEGATIVE); NITRITE,URINE NEGATIVE (NEGATIVE); OCCULT BLOOD,URINE NEGATIVE (NEGATIVE); PROTEIN,URINE NEGATIVE (NEGATIVE); UROBILINOGEN,URINE 0.2 (NORMAL) E.U./dL (NORMAL)
[2023-10-28 17:26] LABS: BACTERIA,URINE Moderate /HPF (None Seen); CLARITY,URINE CLEAR (CLEAR); RBC,URINE None Seen /HPF (0-5); SQUAMOUS EPITHELIAL CELL,UR FEW Squamous (<= Few)
== END 2023-10-28 23:59 | disposition home or self-care (01) ==
LOC: LAB.WC 08:00
PROVIDERS: ATTEND Obstetrics & Gynecology
DX: R32 Unspecified urinary incontinence (principal); R39.15 Urgency of urination
CPT/HCPCS: 81001; 87077; 87086; 87181

== ENCOUNTER 2023-11-16 08:00 | Outpatient (CLI) | payer OTHER | END 2023-11-16 23:59 | disposition home or self-care (01) | LOC: LAB 08:00 | PROVIDERS: ATTEND Urology | DX: R32 Unspecified urinary incontinence (principal) | CPT/HCPCS: 87086 ==

== ENCOUNTER 2023-11-21 11:36 | Emergency (ER) | payer OTHER ==
[2023-11-21 12:31] LABS: RAPID STREP SCREEN Negative (Negative)
[2023-11-21 13:09] LABS: B. PARAPERTUSSIS- RESP PCR PAN NOT DETECTED; B. PERTUSSIS- RESP PCR PANEL NOT DETECTED; C. PNEUMONIAE- RESP PCR PANEL NOT DETECTED; CORONAVIRUS 229E-RESP PCR NOT DETECTED; CORONAVIRUS HKU1-RESP PCR NOT DETECTED; CORONAVIRUS NL63-RESP PCR NOT DETECTED; CORONAVIRUS OC43-RESP PCR NOT DETECTED; HUMAN METAPNEUMOVIRUS NOT DETECTED; INFLUENZA A- RESP PCR PANEL NOT DETECTED; INFLUENZA B - RESP PCR PANEL NOT DETECTED; M. PNEUMONIAE- RESP PCR PANEL NOT DETECTED; PARAINFLUENZA VIRUS 1 NOT DETECTED; PARAINFLUENZA VIRUS 2 NOT DETECTED; PARAINFLUENZA VIRUS 3 NOT DETECTED; PARAINFLUENZA VIRUS 4 NOT DETECTED; RHINOVIRUS/ENTEROVIRUS NOT DETECTED; RSV- RESP PCR PANEL NOT DETECTED; SARS-CoV-2 -RESP PCR PANEL NOT DETECTED
[2023-11-21 14:54] LABS: BASOPHILS % (AUTO) 0.5 %; EOSINOPHILS # (AUTO) 0.5 10^3/uL (0.0-0.7); EOSINOPHILS % (AUTO) 7.3 %; HCT - HEMATOCRIT 37.4 % (37.0-47.0); HGB - HEMOGLOBIN 12.2 g/dL (12.0-16.0); LYMPHOCYTES # (AUTO) 1.1 10^3/uL (1.5-3.5); LYMPHOCYTES % (AUTO) 16.8 %; MEAN CORPUSCULAR HEMOGLOBIN 29.5 pg (27.0-31.0); MEAN CORPUSCULAR HGB CONC 32.6 g/dL (32.0-36.0); MEAN CORPUSCULAR VOLUME 90.6 fL (81.0-99.0); MONOCYTES # (AUTO) 0.4 10^3/uL (0.0-1.0); MONOCYTES % (AUTO) 5.3 %; NEUTROPHILS # (AUTO) 4.6 10^3/uL (1.5-6.6); NEUTROPHILS % (AUTO) 69.5 %; PLT - PLATELET COUNT 195 10^3/uL (130-450); RED BLOOD COUNT 4.13 10^6/uL (4.20-5.40); RED CELL DISTRIBUTION WIDTH 16.1 % (12.0-15.0); WHITE BLOOD COUNT 6.6 x10^3/uL (4.8-10.8)
[2023-11-21 15:16] LABS: ALBUMIN 3.4 g/dL (3.2-5.5); ALBUMIN/GLOBULIN RATIO 1.1 (1.0-2.2); ALKALINE PHOSPHATASE 152 IU/L (42-121); ALT ALANINE AMINOTRANSFERASE 54 IU/L (10-60); AST ASPARTATE AMINOTRANSFERASE 54 IU/L (10-42); BILIRUBIN,TOTAL 0.4 mg/dL (0.2-1.0); BUN - BLOOD UREA NITROGEN 14 mg/dL (6-20); CALCIUM 8.9 mg/dL (8.5-10.3); CARBON DIOXIDE - CO2 20 mmol/L (21-32); CHLORIDE 101 mmol/L (101-111); CREATININE 0.8 mg/dL (0.6-1.3); GFR - MDRD 74 (>89); GLUCOSE 141 mg/dL (74-104); POTASSIUM 3.4 mmol/L (3.5-4.5); SODIUM 130 mmol/L (135-145); TOTAL PROTEIN 6.5 g/dL (6.4-8.9)
[2023-11-21 15:19] LABS: LIPASE < 10 U/L (11-82)
[2023-11-21 15:37] VITALS: BP 129/61; O2SAT 94
--- NOTE | 2023-11-21 15:39 | XRAY Report ---
PROCEDURE: Chest 1V INDICATIONS: chest pain TECHNIQUE: One view of the chest was acquired. COMPARISON: Chest radiograph 01/23/2021. FINDINGS: Surgical changes and devices: Right chest port with tip projecting over the right atrium. Lungs and pleura: No pleural effusions or pneumothorax. Mildly prominent interstitial markings. Mediastinum: Mediastinal contours appear normal. Heart size is normal. Bones and chest wall: No suspicious bony lesions. Overlying soft tissues appear unremarkable. IMPRESSION: No acute cardiopulmonary process. Mildly prominent interstitial markings may represent mild pulmonary edema. No focal airspace consolid ation. Reviewed by: Yani Marte MD on 11/21/2023 3:38 PM PST Approved by: Yani Marte MD on 11/21/2023 3:38 PM PST Station ID: [id number]
[2023-11-21] MEDS ORDERED: POTASSIUM CHLORIDE 20 MEQ/15 ML UDC PO SCH (16:00)
--- NOTE | 2023-11-21 16:20 | ED Physician Documentation ---
History of Present Illness - Stated complaint Stated Complaint: FEVER,SORE THROAT - Chief complaint Chief Complaint: Fever - Additonal information Additional information: Patient 57-year-old female presenting to the emergency department with chief complaint fever, fatigue, cough, congestion. She has a past medical significant for breast CA for which she is actively receiving chemotherapy, last treatment approximately 1 week ago. Additionally she is currently receiving Bactrim for a urinary tract infection diagnosed 3 days ago. Reports that for the last few days she has had fatigue, body aches, some cough and congestion. She reports that she does feel short of breath however she states that she is chronically short of breath and this is not worse than usual. Denies any known sick contacts. Does report that since her last chemotherapy session she has developed an irritable rash on her face and chest. States that this was at its worst 2 days ago but is now improving. Review of Systems Constitutional: reports: Fever, Myalgias Eyes: denies: Loss of vision Ears: denies: Loss of hearing Nose: reports: Rhinorrhea / runny nose, Congestion Respiratory: reports: Cough GI: reports: Nausea, Vomiting. 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(s) : None HEENT: None Psych: Depression, Anxiety Musculoskeletal: Osteoarthritis, Fibromyalgia, Chronic back pain Derm: None - Past Surgical History Past Surgical History: Yes /HOUSEHOLD PERSONAL ASSISTANT: Tubal ligation Cardiovascular: Coronary stent, Cardiac catheterization - Present Medications Home Medications: Ambulatory Orders Medication Instructions Recorded Confirmed Acetaminophen [Tylenol] 650 mg PO Q4HR PRN 11/21/15 11/09/23 Albuterol Sulfate [Proair Hfa] 8.5 gm IH Q4H PRN 11/21/15 11/09/23 Aspirin [Herrick Aspirin] 81 mg PO DAILY 11/21/15 11/09/23 Amitriptyline HCl 100 mg PO TID 04/27/21 11/09/23 Isosorbide Mononitrate [Isosorbide 60 mg PO DAILY 04/27/21 11/09/23 Mononitrate ER] Levothyroxine [Synthroid] 100 mcg PO QDAC 04/27/21 11/09/23 Loratadine [Claritin] 10 mg PO DAILY 04/27/21 11/09/23 Nitroglycerin [Nitrostat] 0.4 mg SL Q5MIN PRN 04/27/21 11/09/23 Omeprazole 40 mg PO DAILY 04/27/21 11/09/23 Pantoprazole Sodium 20 mg PO BID 04/27/21 11/09/23 Rosuvastatin Calcium [Crestor] 20 mg PO DAILY 04/28/21 11/09/23 Ozempic 1 mg SUBQ UD 07/27/23 09/28/23 Anastrozole 1 mg PO DAILY #30 tablet 09/07/23 11/09/23 FLUoxetine [PROzac] 20 mg PO TID 09/07/23 11/09/23 Hydrocodone/Acetaminophen 2 each PO BID #4 tablet 09/07/23 11/09/23 [Hydrocodone-Acetamin 10-325 mg] Lorazepam [Ativan] 2 mg PO ONCE #2 tablet 09/07/23 11/09/23 Topiramate [Topamax] 25 mg PO TID 09/07/23 11/09/23 Azelastine HCl 1 spray NS BID 09/12/23 11/09/23 Famotidine 40 mg PO BID 09/12/23 11/09/23 Fluticasone [Flonase] 1 sprays CL DAILY 09/12/23 11/09/23 Lactobacillus Combination No.4 1 each PO DAILY 09/12/23 11/09/23 [Probiotic] Ondansetron [Ondansetron Odt] 8 mg PO Q8H #90 tab 09/28/23 11/09/23 Prochlorperazine [Compazine] 5 mg PO Q6H PRN #90 tablet 09/28/23 11/09/23 Lidocaine/Prilocain 2.5% Cream 1 each TP 10/05/23 [Emla 2.5% Cream] Clobetasol 0.05% Oint [Temovate 1 applic TOP Q12H #15 gm 11/09/23 0.05% Oint] - Allergies Allergies/Adverse Reactions: Allergies Allergy/AdvReac Type Severity Reaction Status Date / Time trastuzumab Allergy Anaphylaxis Verified 11/09/23 11:20 diphenhydramine AdvReac Severe Itching Verified 11/09/23 11:20 [From Benadryl] adhesive tape AdvReac Rash Verified 11/09/23 11:20 - Social History Does the pt smoke?: Yes Smoking Status: Current every day smoker Does the pt drink ETOH?: No Does the pt have substance abuse?: No - Immunizations Immunizations are current?: Yes - POLST Patient has POLST: No PD ED PE NORMAL - Vitals Vital signs reviewed: Yes - General General: Alert and oriented X 3, No acute distress - HEENT HEENT: Atraumatic, PERRL, EOMI, Ears normal, Moist mucous membranes, Pharynx benign, Dentition benign - Neck Neck: Supple, no meningeal sign, No bony TTP, No adenopathy, Thyroid normal, No JVD, No bruit, C-Spine cleared by NEXUS criteria - Cardiac Cardiac: RRR, No murmur, No gallop, Strong equal pulses - Respiratory Respiratory: No respiratory distress, Clear bilaterally - Abdomen Abdomen: Normal bowel sounds, Non tender - Female Female : Deferred - Rectal Rectal: Deferred - Back Back: No CVA TTP - Derm Derm: Other (There is a nonspecific dermatitis that appears most consistent with a contact dermatitis prominently on the upper anterior aspect of the patient's chest.) - Extremities Extremities: No deformity - Neuro Neuro: Alert and oriented X 3, 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, No motor deficit, Normal speech Results - Vitals Vitals: Vital Signs - 24 hr 11/21/23 11/21/23 11:42 15:32 Temperature 37.1 C Heart Rate 92 77 Respiratory 20 20 Rate Blood Pressure 111/60 129/61 O2 Saturation 96 94 Oxygen O2 Source Room air - Labs Labs: Laboratory Tests 11/21/23 11/21/23 11/21/23 12:05 12:05 14:48 WBC 6.6 RBC 4.13 L Hgb 12.2 Hct 37.4 MCV 90.6 MCH 29.5 MCHC 32.6 RDW 16.1 H Plt Count 195 MPV 10.0 Neut # (Auto) 4.6 Lymph # (Auto) 1.1 L [place] # (Auto) 0.4 Eos # (Auto) 0.5 Baso # (Auto) 0.0 Absolute Nucleated RBC 0.00 Nucleated RBC % 0.0 Sodium Potassium Chloride Carbon Dioxide Anion Gap BUN Creatinine Estimated GFR (MDRD) Glucose Calcium Total Bilirubin AST ALT Alkaline Phosphatase Total Protein Albumin Globulin Albumin/Globulin Ratio Lipase Nasal Adenovirus (PCR) NOT DETECTED Nasal B. parapertussis DNA (PCR) NOT DETECTED Nasal Coronavir 229E PCR NOT DETECTED Nasal Coronavir HKU1 PCR NOT DETECTED Nasal Coronavir NL63 PCR NOT DETECTED Nasal Coronavir OC43 PCR NOT DETECTED Nasal Enterovir/Rhinovir PCR NOT DETECTED Nasal Influenza B PCR NOT DETECTED Nasal Influenza A PCR NOT DETECTED Nasal Parainfluen 1 PCR NOT DETECTED Nasal Parainfluen 2 PCR NOT DETECTED Nasal Parainfluen 3 PCR NOT DETECTED Nasal Parainfluen 4 PCR NOT DETECTED Nasal RSV (PCR) NOT DETECTED Nasal B.pertussis DNA PCR NOT DETECTED Nasal C.pneumoniae (PCR) NOT DETECTED Cl Human Metapneumo PCR NOT DETECTED Nasal M.pneumoniae (PCR) NOT DETECTED Nasal SARS-CoV-2 (PCR) NOT DETECTED Group A Strep Rapid Negative 11/21/23 14:48 WBC RBC Hgb Hct MCV MCH MCHC RDW Plt Count MPV Neut # (Auto) Lymph # (Auto) [place] # (Auto) Eos # (Auto) Baso # (Auto) Absolute Nucleated RBC Nucleated RBC % Sodium 130 L Potassium 3.4 L Chloride 101 Carbon Dioxide 20 L Anion Gap 9.0 BUN 14 Creatinine 0.8 Estimated GFR (MDRD) 74 L Glucose 141 H Calcium 8.9 Total Bilirubin 0.4 AST 54 H ALT 54 Alkaline Phosphatase 152 H Total Protein 6.5 Albumin 3.4 Globulin 3.1 Albumin/Globulin Ratio 1.1 Lipase < 10 L Nasal Adenovirus (PCR) Nasal B. parapertussis DNA (PCR) Nasal Coronavir 229E PCR Nasal Coronavir HKU1 PCR Nasal Coronavir NL63 PCR Nasal Coronavir OC43 PCR Nasal Enterovir/Rhinovir PCR Nasal Influenza B PCR Nasal Influenza A PCR Nasal Parainfluen 1 PCR Nasal Parainfluen 2 PCR Nasal Parainfluen 3 PCR Nasal Parainfluen 4 PCR Nasal RSV (PCR) Nasal B.pertussis DNA PCR Nasal C.pneumoniae (PCR) Cl Human Metapneumo PCR Nasal M.pneumoniae (PCR) Nasal SARS-CoV-2 (PCR) Group A Strep Rapid PD Medical Decision Making - ED course Complexity details: reviewed results, considered differential, d/w patient ED course: Patient is a 57-year-old female with a past medical significant for breast CVA who is currently being treated for urinary tract infection who is presenting to the emergency department with 3 days of fever, cough and congestion. Afebrile, hemodynamically stable on arrival to the emergency department. Clear aeration in all lung larson with no respiratory distress. Abdominal exam benign although somewhat limited by body habitus. She does notably have a nonspecific dermatitis that appears most consistent with a contact dermatitis prominently on the anterior aspect of her chest. She states that this began shortly after her last session of chemotherapy and that it has been improving over the course of the last few days. Comprehensive labs were obtained and they do not show any leukocytosis or neutropenia. There is a mild lymphopenia which would be consistent with an acute viral process. Similarly her electrolytes are all generally within normal limits or nonactionable with the exception of a mild hypokalemia which was repleted here in the emergency department. I did review her recent urine culture and it was positive for E. coli susceptible to the sulfamethoxazole trimethoprim that she is currently taking. Her respiratory viral panel as well as her strep pharyngitis panel was negative. Her HEENT exam did not show any indications of a deep space neck infection or other more serious process. Given her symptoms here in the emergency department I believe she would benefit from a single dose of Decadron to help with her reported pharyngitis. Her chest x-ray did show some prominent interstitial markings however there is nothing to indicate acute or developing pulmonary edema or heart failure in her clinical presentation. Nevertheless these results were discussed with her directly and she was given instructions to return to the emergency department immediately for any worsening shortness of breath. In the interim I will prescribe hydrocortisone cream for her rash and encourage careful follow-up with her primary care doctor and outpatient oncologic team. Departure - Departure
[2023-11-21] MEDS ORDERED: CHERRY SYRUP 10 ML UDC PO ONE (16:30)
[2023-11-21] MEDS ORDERED: DEXAMETHASONE 10 MG/ML VIAL PO STA (16:30)
== END 2023-11-21 16:55 | disposition home or self-care (01) ==
LOC: ED 11:36
DX: B34.9 Viral infection, unspecified (principal); E78.00 Pure hypercholesterolemia, unspecified; J44.9 Chronic obstructive pulmonary disease, unspecified; E11.9 Type 2 diabetes mellitus without complications; E03.9 Hypothyroidism, unspecified; K21.9 Gastro-esophageal reflux disease without esophagitis; F17.200 Nicotine dependence, unspecified, uncomplicated; Z79.899 Other long term (current) drug therapy; Z79.82 Long term (current) use of aspirin
CPT/HCPCS: 36415; 71045; 80053; 83690; 85025; 87070; 87430; 87633; 99284; A9270

== ENCOUNTER → 2024-01-18 | Outpatient (CLI) | payer MEDICAID | LOC: PC 08:00 | PROVIDERS: ATTEND Nurse Practitioner Gerontology | DX: Z51.5 Encounter for palliative care (principal); C50.912 Malignant neoplasm of unspecified site of left female breast; F41.9 Anxiety disorder, unspecified; J44.9 Chronic obstructive pulmonary disease, unspecified; J45.20 Mild intermittent asthma, uncomplicated; F17.200 Nicotine dependence, unspecified, uncomplicated; Z79.82 Long term (current) use of aspirin; Z91.81 History of falling; Z71.89 Other specified counseling | CPT/HCPCS: 99215 ==

== ENCOUNTER 2024-01-25 08:00 | Outpatient (CLI) | payer MEDICAID | END 2024-01-25 23:59 | disposition home or self-care (01) | LOC: PC 08:00 | PROVIDERS: ATTEND Nurse Practitioner Gerontology | DX: Z51.5 Encounter for palliative care (principal); Z91.81 History of falling; F17.210 Nicotine dependence, cigarettes, uncomplicated; M54.16 Radiculopathy, lumbar region; M51.34 Other intervertebral disc degeneration, thoracic region; G89.29 Other chronic pain; C50.912 Malignant neoplasm of unspecified site of left female breast; Z17.0 Estrogen receptor positive status [ER+]; Z71.89 Other specified counseling; Z79.899 Other long term (current) drug therapy; Z79.891 Long term (current) use of opiate analgesic; E66.01 Morbid (severe) obesity due to excess calories; R32 Unspecified urinary incontinence; R30.9 Painful micturition, unspecified; R41.3 Other amnesia; R26.89 Other abnormalities of gait and mobility; F41.9 Anxiety disorder, unspecified; K21.9 Gastro-esophageal reflux disease without esophagitis | CPT/HCPCS: 99215; 99417 ==

== ENCOUNTER 2024-01-25 13:19 | Outpatient (CLI) | payer MEDICAID ==
--- NOTE | 2024-01-25 15:22 | XRAY Report ---
PROCEDURE: Thoracic Spine 3V INDICATIONS: BACK PAIN TECHNIQUE: 3 views of the thoracic spine were acquired. COMPARISON: None. FINDINGS: Bones: No fractures or dislocations. No suspicious bony lesions. Degenerative endplate changes and loss of disc height throughout thoracic spine is seen. 12 pairs of ribs are noted, and appear intact where visualized. Soft tissues: No paravertebral stripe thickening. Right chest wall Port-A-Cath tip is in SVC/right atrium. IMPRESSION: No acute bony abnormality. Mild to moderate degenerative disc disease throughout thoracic spine. Reviewed by: Germán Fenton MD on 01/25/2024 3:20 PM PDT Approved by: Germán Fenton MD on 01/25/2024 3:20 PM PDT Station ID: [id number]
--- NOTE | 2024-01-25 16:14 | XRAY Report ---
PROCEDURE: Lumbar Spine 2-3V INDICATIONS: BACK PAIN TECHNIQUE: 2 views of the lumbar spine were acquired. COMPARISON: None. FINDINGS: Bones: 5 [id number] vertebrae are present. There is moderate rightward curvature of thoracolumb ar spine incompletely evaluated on this study. Age indeterminant anterior wedge compression deformity at T12 level is seen with near complete loss of T12 vertebral body height anteriorly. Degenerative e ndplate changes and loss of disc height throughout lumbar spine is seen. Soft tissues: Overlying bowel gas pattern is normal. No suspicious soft tissue calcifications. IMPRESSION: 1. Age indeterminant anterior wedge compression deformity at T12 level as above. 2. No gross acute compression fracture is seen in lumbar spine. Degenerative disc disease throughout lumbar spine. Scoliosis of thoracolumbar spine as above. Reviewed by: Germán Fenton MD on 01/25/2024 4:13 PM PDT Approved by: Germán Fenton MD on 01/25/2024 4:13 PM PDT Station ID: [id number]
== END 2024-01-25 13:20 | disposition home or self-care (01) ==
LOC: DI 13:19
PROVIDERS: ATTEND Nurse Practitioner Gerontology
DX: M51.34 Other intervertebral disc degeneration, thoracic region (principal); M51.36 Other intervertebral disc degeneration, lumbar region; M48.54XA Collapsed vertebra, not elsewhere classified, thoracic region, initial encounter for fracture; M41.9 Scoliosis, unspecified

== ENCOUNTER 2024-02-01 08:00 | Outpatient (CLI) | payer MEDICAID | END 2024-02-01 23:59 | disposition home or self-care (01) | LOC: PC 08:00 | PROVIDERS: ATTEND Nurse Practitioner Gerontology | DX: Z51.5 Encounter for palliative care (principal); N39.0 Urinary tract infection, site not specified; Z79.899 Other long term (current) drug therapy; R06.09 Other forms of dyspnea; Z91.81 History of falling; S22.080D Wedge compression fracture of T11-T12 vertebra, subsequent encounter for fracture with routine healing; M50.33 Other cervical disc degeneration, cervicothoracic region; M51.37 Other intervertebral disc degeneration, lumbosacral region; F32.A Depression, unspecified; Z71.89 Other specified counseling; R53.83 Other fatigue; R53.1 Weakness; R11.0 Nausea; R19.7 Diarrhea, unspecified; C50.912 Malignant neoplasm of unspecified site of left female breast; R41.3 Other amnesia; F17.210 Nicotine dependence, cigarettes, uncomplicated; E66.01 Morbid (severe) obesity due to excess calories; G89.29 Other chronic pain | CPT/HCPCS: 99214 ==

== ENCOUNTER 2024-02-12 08:00 | Outpatient (CLI) | payer MEDICAID | END 2024-02-12 23:59 | disposition home or self-care (01) | LOC: PC 08:00 | PROVIDERS: ATTEND Nurse Practitioner Gerontology | DX: Z51.5 Encounter for palliative care (principal); C50.912 Malignant neoplasm of unspecified site of left female breast | CPT/HCPCS: 99426; 99427 ==

== ENCOUNTER 2024-02-16 08:00 | Outpatient (CLI) | payer MEDICAID | END 2024-02-16 23:59 | disposition home or self-care (01) | LOC: PC 08:00 | PROVIDERS: ATTEND Nurse Practitioner Gerontology | DX: Z51.5 Encounter for palliative care (principal); J41.1 Mucopurulent chronic bronchitis; F41.9 Anxiety disorder, unspecified; R05.3 Chronic cough; C50.912 Malignant neoplasm of unspecified site of left female breast; Z17.0 Estrogen receptor positive status [ER+]; G89.21 Chronic pain due to trauma; S22.080D Wedge compression fracture of T11-T12 vertebra, subsequent encounter for fracture with routine healing; E66.01 Morbid (severe) obesity due to excess calories; F17.210 Nicotine dependence, cigarettes, uncomplicated; R06.09 Other forms of dyspnea; Z74.09 Other reduced mobility; Z79.899 Other long term (current) drug therapy; Z79.891 Long term (current) use of opiate analgesic; Z63.9 Problem related to primary support group, unspecified; Z91.81 History of falling; Z71.89 Other specified counseling; R41.3 Other amnesia; I25.2 Old myocardial infarction; R53.83 Other fatigue; R53.1 Weakness | CPT/HCPCS: 99349 ==

== ENCOUNTER 2024-03-13 08:00 | Outpatient (CLI) | payer MEDICAID | END 2024-03-13 23:59 | disposition home or self-care (01) | LOC: PC 08:00 | PROVIDERS: ATTEND Nurse Practitioner Gerontology | DX: Z51.5 Encounter for palliative care (principal); C50.912 Malignant neoplasm of unspecified site of left female breast | CPT/HCPCS: 99426; 99427 ==

== ENCOUNTER 2024-03-14 12:58 | Outpatient (CLI) | payer MEDICAID ==
--- NOTE | 2024-03-15 00:51 | XRAY Report ---
PROCEDURE: Chest 2V INDICATIONS: BREAST CANCER/INFILTRATE TECHNIQUE: 2 views of the chest were obtained. COMPARISON: 01/04/2024 FINDINGS: Surgical changes and devices: Right-sided Port-A-Cath in place Lungs and pleura: No pleural effusions or pneumothorax. Lungs are clear. Low lung volumes accentuat e pulmonary interstitium and heart size. Patient's mandible obscures the lung apices Mediastinum: Mediastinal contours appear normal. Heart size is normal. Bones and chest wall: No suspicious bony lesions. Overlying soft tissues appear unremarkable. IMPRESSION: No acute cardiopulmonary findings Reviewed by: Jimmy Segundo MD on 03/14/2024 11:50 PM [facility] Approved by: Jimmy Segundo MD on 03/14/2024 11:50 PM AKDT Station ID: [id number]
== END 2024-03-14 12:59 | disposition home or self-care (01) ==
LOC: DI 12:58
PROVIDERS: ATTEND Internal Medicine
DX: C50.919 Malignant neoplasm of unspecified site of unspecified female breast (principal)

== ENCOUNTER 2024-04-04 08:00 | Outpatient (CLI) | payer MEDICAID | END 2024-04-04 23:59 | disposition home or self-care (01) | LOC: PC 08:00 | PROVIDERS: ATTEND Nurse Practitioner Gerontology | DX: Z51.5 Encounter for palliative care (principal); C50.912 Malignant neoplasm of unspecified site of left female breast; J41.1 Mucopurulent chronic bronchitis; G89.21 Chronic pain due to trauma; S22.080S Wedge compression fracture of T11-T12 vertebra, sequela; X58.XXXS Exposure to other specified factors, sequela; B37.9 Candidiasis, unspecified; F32.A Depression, unspecified; F41.9 Anxiety disorder, unspecified; I10 Essential (primary) hypertension; F17.210 Nicotine dependence, cigarettes, uncomplicated; Z17.0 Estrogen receptor positive status [ER+]; Z71.89 Other specified counseling | CPT/HCPCS: 99215 ==

== ENCOUNTER 2024-04-13 08:00 | Outpatient (CLI) | payer MEDICAID | END 2024-04-13 23:59 | disposition home or self-care (01) | LOC: PC 08:00 | PROVIDERS: ATTEND Nurse Practitioner Gerontology | DX: Z51.5 Encounter for palliative care (principal); C50.912 Malignant neoplasm of unspecified site of left female breast | CPT/HCPCS: 99426; 99427 ==

== ENCOUNTER 2024-04-25 08:00 | Outpatient (CLI) | payer MEDICAID | END 2024-04-25 23:59 | disposition home or self-care (01) | LOC: PC 08:00 | PROVIDERS: ATTEND Nurse Practitioner Gerontology | DX: Z51.5 Encounter for palliative care (principal); C50.912 Malignant neoplasm of unspecified site of left female breast; F41.9 Anxiety disorder, unspecified; G89.29 Other chronic pain; R60.0 Localized edema; E66.01 Morbid (severe) obesity due to excess calories; Z17.0 Estrogen receptor positive status [ER+]; Z68.39 Body mass index [BMI] 39.0-39.9, adult; Z71.89 Other specified counseling; Z79.899 Other long term (current) drug therapy | CPT/HCPCS: 99215 ==

== ENCOUNTER 2024-06-06 16:21 | Outpatient (CLI) | payer MEDICAID | END 2024-06-06 23:59 | disposition EMS.NT | LOC: EMS 16:21 | DX: Z03.89 Encounter for observation for other suspected diseases and conditions ruled out (principal) ==

== ENCOUNTER 2024-06-07 08:00 | Outpatient (CLI) | payer MEDICAID | END 2024-06-07 23:59 | disposition home or self-care (01) | LOC: PC 08:00 | PROVIDERS: ATTEND Nurse Practitioner Gerontology | DX: Z51.5 Encounter for palliative care (principal); C50.912 Malignant neoplasm of unspecified site of left female breast; Z17.0 Estrogen receptor positive status [ER+]; G89.3 Neoplasm related pain (acute) (chronic); E66.01 Morbid (severe) obesity due to excess calories; R53.1 Weakness; R29.6 Repeated falls; R20.0 Anesthesia of skin; R20.2 Paresthesia of skin; R30.9 Painful micturition, unspecified; R35.0 Frequency of micturition; R63.0 Anorexia; F11.959 Opioid use, unspecified with opioid-induced psychotic disorder, unspecified; T40.2X5A Adverse effect of other opioids, initial encounter; F17.210 Nicotine dependence, cigarettes, uncomplicated; Z79.899 Other long term (current) drug therapy; R41.3 Other amnesia; T45.1X5A Adverse effect of antineoplastic and immunosuppressive drugs, initial encounter; R06.02 Shortness of breath; Z92.3 Personal history of irradiation; K21.9 Gastro-esophageal reflux disease without esophagitis; M62.561 Muscle wasting and atrophy, not elsewhere classified, right lower leg; Z71.89 Other specified counseling; Z92.21 Personal history of antineoplastic chemotherapy; Z79.620 Long term (current) use of immunosuppressive biologic | CPT/HCPCS: 99350 ==

== ENCOUNTER 2024-06-13 08:00 | Outpatient (CLI) | payer MEDICAID | END 2024-06-13 23:59 | disposition home or self-care (01) | LOC: PC 08:00 | PROVIDERS: ATTEND Nurse Practitioner Gerontology | DX: Z51.5 Encounter for palliative care (principal); C50.912 Malignant neoplasm of unspecified site of left female breast | CPT/HCPCS: 99426; 99427 ==

== ENCOUNTER 2024-07-12 08:00 | Outpatient (CLI) | payer MEDICAID | END 2024-07-12 23:59 | disposition home or self-care (01) | LOC: PC 08:00 | PROVIDERS: ATTEND Nurse Practitioner Gerontology | DX: Z51.5 Encounter for palliative care (principal); M54.50 Low back pain, unspecified; G89.29 Other chronic pain; R53.1 Weakness; C50.912 Malignant neoplasm of unspecified site of left female breast; Z79.899 Other long term (current) drug therapy; Z79.891 Long term (current) use of opiate analgesic; Z79.82 Long term (current) use of aspirin; Z79.811 Long term (current) use of aromatase inhibitors; F17.210 Nicotine dependence, cigarettes, uncomplicated; E66.01 Morbid (severe) obesity due to excess calories; Z68.43 Body mass index [BMI] 50.0-59.9, adult | CPT/HCPCS: 99215 ==